=== PATIENT | male | born 1945 | race Caucasian/White ===

== ENCOUNTER → 2016-08-09 | Outpatient (REF) | payer MEDICARE, OTHER ==
[~2016-08-09] MED LIST: /HCTZ25TA PO; ALPR0.5T3 PO; ALPR2TAB3 PO; ASPI1TAB PO; ASPI81TA90 PO; BACT800T5 PO; DOCU10ELUD PO; FLOM5CAP PO; HYDR25TAB PO; LEVO500I7 PO; METO50TA2 PO; METO50TA4 PO; MULT1TAB10 PO; MULTCAP11 PO; PERC5TAB PO; PERCOCET PO; SIMV40TA2 PO; SIMVPOW2 OR; VIAG100T PO; VITA100037 PO; VITA100066 PO; flomax PO; metoprolol OR; vitamin D OR
[2016-08-09 17:42] LABS: ALBUMIN 3.8 GM/DL (3.2-5.2); CALCIUM LEVEL 9.4 MG/DL (8.8-10.2); CREATININE FOR GFR 1.48 MG/DL (0.70-1.30); GLOMERULAR FILTRATION RATE 49.9 (>42); POTASSIUM SERUM 4.4 MEQ/L (3.5-5.1)
[2016-08-09 18:20] LABS: INR 1.05
[2016-08-09 18:30] LABS: MEAN CORPUSCULAR HEMOGLOBIN 33.8 pg (27.0-33.0); MEAN CORPUSCULAR HGB CONC 33.7 g/dl (32.0-36.5); MEAN CORPUSCULAR VOLUME 100.4 fl (80.0-96.0); WHITE BLOOD COUNT 8.6 K/mm3 (4.0-10.0)
[2016-08-09 19:09] LABS: BASOPHILS 2 % (0-4); EOSINOPHILS 1 % (0-5)
== END ==
LOC: M SFHCLERA 10:22
PROVIDERS: ATTEND Family Medicine
DX: Z01.818 Encounter for other preprocedural examination (principal); N32.89 Other specified disorders of bladder; I10 Essential (primary) hypertension; I25.10 Atherosclerotic heart disease of native coronary artery without angina pectoris; F17.200 Nicotine dependence, unspecified, uncomplicated
CPT/HCPCS: 80069; 83036; 85007; 85027; 85610; 93005; G0463

== ENCOUNTER → 2016-08-12 | Outpatient (CLI) | payer MEDICARE, OTHER ==
--- NOTE | 2016-08-12 13:18 | REP ---
CHEST X-RAY: FOUR VIEWS PRESENTED. History: Personal history of bladder cancer. Comparison study: April 17, 2015. Findings: The lungs are somewhat hyperinflated but free of infiltrate. Pleural angles are sharp. Interstitial markings are slightly prominent in the bases. There are old healed rib fractures on the left anteriorly. No pulmonary mass lesion is seen. No hilar or mediastinal adenopathy is observed. Heart size is normal. Nipple silhouettes project at the bases. Impression: No active disease. Hyperinflation and bibasilar interstitial prominence consistent with COPD. Signed by Valerio Jeronimo MD 08/12/2016 03:59 P
== END ==
LOC: M LRY 10:15
PROVIDERS: ATTEND Urology
DX: Z85.51 Personal history of malignant neoplasm of bladder (principal); R91.8 Other nonspecific abnormal finding of lung field; Z79.899 Other long term (current) drug therapy

== ENCOUNTER → 2016-08-12 | Outpatient (REF) | payer MEDICARE, OTHER | LOC: M LABSMT 10:30 | PROVIDERS: ATTEND Urology | DX: Z85.51 Personal history of malignant neoplasm of bladder (principal) ==

== ENCOUNTER → 2016-08-14 | Day surgery (SDC) | payer MEDICARE, OTHER ==
[~2016-08-14] VITALS: Ht 182.9 cm; Wt 77.6 kg
[~2016-08-14] MED LIST changes: +LIDOCAINE 2% INJ 100 MG/5 ML SDV (FOR ANES.) As Ordered ONE; +LR 1,000 ML IV SCH; +METOCLOPRAMIDE INJ 10MG/2ML VIAL (J2765) As Ordered ONE; +METOCLOPRAMIDE INJ 10MG/2ML VIAL (J2765) IV PRN; +METOPROLOL 5 MG/5 ML VIAL As Ordered ONE; +MIDAZOLAM INJ 2 MG/2 ML VIAL (J2250) As Ordered ONE; +ONDANSETRON 4MG/2ML VIAL (J2405) As Ordered ONE; +ONDANSETRON 4MG/2ML VIAL (J2405) IV PRN; +PERCOCET 5MG/325MG TAB PO PRN; +PROPOFOL 200 MG/20 ML VIAL As Ordered ONE; +ROCURONIUM BROMIDE 50 MG/5 ML VIAL As Ordered ONE; +dexameTHASONE 4 MG/ML 1ML VIAL (J1100) As Ordered ONE; +fentaNYL 100 MCG/2 ML INJECTION (J3010) IV PRN; +fentaNYL 250 MCG/5 ML INJECTION (J3010) As Ordered ONE
[2016-08-14 19:00] VITALS: BP 183/97
--- NOTE | 2016-08-15 07:37 | RO ---
DATE OF PROCEDURE: 08/14/2016 PREOPERATIVE DIAGNOSIS: Bladder tumor. POSTOPERATIVE DIAGNOSIS: Bladder tumor. SURGERY PERFORMED: Cystoscopy, plus transurethral resection of bladder tumor (TURBT), plus exam under anesthesia. SURGEON: Dr. True España CUSTOMER MARKETING MANAGER: None. ANESTHESIA: General. COMPLICATIONS: None. ESTIMATED BLOOD LOSS: N/A. FINDINGS: Bladder tumor with calcification about 2 cm and periurethral right sided bladder tumor about 1 cm. HISTORY OF PRESENT ILLNESS: This is a 71-year-old male patient that has a history of bladder cancer and also prostate cancer. He had a robotic assisted radical prostatectomy in the past. He is being followed because of a superficial bladder cancer. The patient has a recurrence with a bladder tumor calcified in the right lateral wall and also periureteral right sided papillary tumor about 1 cm in diameter in the periureteral orifice. For this reason, he has consented for cystoscopy plus TURBT plus exam under anesthesia. PROCEDURE DESCRIPTION: In a patient under general anesthesia in supine modified low lithotomy position after prepping and draping the area of concern, which included the entire genitalia and abdomen, we introduced a cystoscope under video endoscopic guidance with a 30 degrees lens. The fossa navicularis, penile urethra, bulbar urethra, membranous urethra, and bladder neck were totally normal. The bladder had calcification and a bladder tumor on the right lateral wall about 2 cm in diameter. It had a right ureteral orifice which was open due to history of prior resection in that area. There was a periureteral tumor about 1 cm in diameter around the periureteral orifice. The left ureteral orifice was seen for clear urine. There were no other tumors and no stones, no foreign objects. There was a diverticulum on the right side of the bladder. We then proceeded to exchange the cystoscope for a resectoscope and with bipolar dissection and normal saline we resected the bladder tumor with calcification and sent it for permanent pathology analysis. Then, we resected the periureteral orifice urothelium and sent it for permanent pathology analysis as bladder tumor. We then fulgurated the base of the resections and placed a Butcher catheter 20 Iranian 3-way. We plugged the third way and placed the Butcher to gravity. PLAN: The patient will go home with the Butcher catheter to gravity. He will have Bactrim Double Strength one tablet by mouth twice a day, Percocet one tablet by mouth every 6 hours as needed for pain. Followup in two days for a voiding trial. There were no complications during surgery.
== END | disposition home or self-care (01) ==
LOC: M SDC 11:46
PROVIDERS: ATTEND Urology
DX: C67.2 Malignant neoplasm of lateral wall of bladder (principal); C67.5 Malignant neoplasm of bladder neck; I10 Essential (primary) hypertension; E78.00 Pure hypercholesterolemia, unspecified; I73.9 Peripheral vascular disease, unspecified; F41.9 Anxiety disorder, unspecified; N52.9 Male erectile dysfunction, unspecified; E55.9 Vitamin D deficiency, unspecified; F43.10 Post-traumatic stress disorder, unspecified; Z92.21 Personal history of antineoplastic chemotherapy; Z92.3 Personal history of irradiation; F17.210 Nicotine dependence, cigarettes, uncomplicated; Z79.899 Other long term (current) drug therapy; Z79.82 Long term (current) use of aspirin; Z88.5 Allergy status to narcotic agent; Z85.46 Personal history of malignant neoplasm of prostate; Z85.51 Personal history of malignant neoplasm of bladder
CPT/HCPCS: 36415; 52235; 86850; 86900; 86901; 88305; J0690; J1100; J2250; J2405; J2765; J3010

== ENCOUNTER → 2016-08-27 | Outpatient (REF) | payer MEDICARE, OTHER ==
[~2016-08-27] MED LIST changes: -LIDOCAINE 2% INJ 100 MG/5 ML SDV (FOR ANES.) As Ordered ONE; -LR 1,000 ML IV SCH; -METOCLOPRAMIDE INJ 10MG/2ML VIAL (J2765) As Ordered ONE; -METOCLOPRAMIDE INJ 10MG/2ML VIAL (J2765) IV PRN; -METOPROLOL 5 MG/5 ML VIAL As Ordered ONE; -MIDAZOLAM INJ 2 MG/2 ML VIAL (J2250) As Ordered ONE; -ONDANSETRON 4MG/2ML VIAL (J2405) As Ordered ONE; -ONDANSETRON 4MG/2ML VIAL (J2405) IV PRN; -PERCOCET 5MG/325MG TAB PO PRN; -PROPOFOL 200 MG/20 ML VIAL As Ordered ONE; -ROCURONIUM BROMIDE 50 MG/5 ML VIAL As Ordered ONE; -dexameTHASONE 4 MG/ML 1ML VIAL (J1100) As Ordered ONE; -fentaNYL 100 MCG/2 ML INJECTION (J3010) IV PRN; -fentaNYL 250 MCG/5 ML INJECTION (J3010) As Ordered ONE
== END ==
LOC: M LABSMT 09:55
PROVIDERS: ATTEND Nurse Practitioner Women's Health
DX: C67.9 Malignant neoplasm of bladder, unspecified (principal); N39.0 Urinary tract infection, site not specified

== ENCOUNTER → 2016-09-10 | Outpatient (REF) | payer MEDICARE, OTHER | LOC: M SMT 13:18 | PROVIDERS: ATTEND Nurse Practitioner Women's Health | DX: N39.0 Urinary tract infection, site not specified (principal) ==

== ENCOUNTER → 2016-09-27 | Outpatient (CLI) | payer MEDICARE, OTHER ==
[2016-09-27 13:59] LABS: MEAN CORPUSCULAR HEMOGLOBIN 33.1 pg (27.0-33.0); MEAN CORPUSCULAR HGB CONC 33.4 g/dl (32.0-36.5); MEAN CORPUSCULAR VOLUME 99.1 fl (80.0-96.0); RED CELL DISTRIBUTION WIDTH 12.8 % (11.5-14.5); WHITE BLOOD COUNT 7.6 K/mm3 (4.0-10.0)
[2016-09-27 14:24] LABS: CALCIUM LEVEL 8.9 MG/DL (8.8-10.2); CREATININE FOR GFR 1.49 MG/DL (0.70-1.30); GLOMERULAR FILTRATION RATE 49.5 (>42); POTASSIUM SERUM 4.3 MEQ/L (3.5-5.1)
== END ==
LOC: M SMT 10:46
PROVIDERS: ATTEND Urology
DX: C67.9 Malignant neoplasm of bladder, unspecified (principal); Z79.899 Other long term (current) drug therapy
CPT/HCPCS: 36415; 80048; 81001; 85027; 87086; G0463

== ENCOUNTER → 2016-10-25 | Outpatient (REF) | payer MEDICARE, OTHER ==
[2016-10-25 11:35] LABS: MEAN CORPUSCULAR HEMOGLOBIN 32.7 pg (27.0-33.0); MEAN CORPUSCULAR HGB CONC 32.9 g/dl (32.0-36.5); MEAN CORPUSCULAR VOLUME 99.6 fl (80.0-96.0); RED CELL DISTRIBUTION WIDTH 13.2 % (11.5-14.5); WHITE BLOOD COUNT 10.8 K/mm3 (4.0-10.0)
[2016-10-25 12:04] LABS: ALBUMIN 3.6 GM/DL (3.2-5.2); ALBUMIN/GLOBULIN RATIO 1.09 (1.00-1.93); BILIRUBIN,TOTAL 0.3 MG/DL (0.2-1.0); CREATININE FOR GFR 1.58 MG/DL (0.70-1.30); GLOMERULAR FILTRATION RATE 46.3 (>42); POTASSIUM SERUM 4.6 MEQ/L (3.5-5.1); TOTAL PROTEIN 6.9 GM/DL (6.4-8.2)
== END ==
LOC: M SFHCLERA 09:36
PROVIDERS: ATTEND Physician Assistant
DX: R07.9 Chest pain, unspecified (principal); E78.2 Mixed hyperlipidemia; J44.9 Chronic obstructive pulmonary disease, unspecified; Z79.899 Other long term (current) drug therapy

== ENCOUNTER → 2017-02-17 | Outpatient (REF) | payer MEDICARE, OTHER ==
[~2017-02-17] MED LIST changes: +ADV250INH INH; +HYDR25TA6 PO; +INCR1INH INH; +METO1TAB7 PO; -METO50TA2 PO; +METO50TA7 PO; +NICO21DI5 TD; +PREV10CA PO; +PROAAER10 INH
== END ==
LOC: M SMT 17:40
PROVIDERS: ATTEND Urology
DX: Z85.51 Personal history of malignant neoplasm of bladder (principal)

== ENCOUNTER → 2017-02-26 | Outpatient (CLI) | payer MEDICARE, OTHER ==
[2017-02-26 13:20] LABS: MEAN CORPUSCULAR HEMOGLOBIN 34.1 pg (27.0-33.0); MEAN CORPUSCULAR VOLUME 100.3 fl (80.0-96.0); RED CELL DISTRIBUTION WIDTH 14.1 % (11.5-14.5); WHITE BLOOD COUNT 6.7 K/mm3 (4.0-10.0)
[2017-02-26 13:27] LABS: ALBUMIN 3.6 GM/DL (3.2-5.2); ALBUMIN/GLOBULIN RATIO 1.09 (1.00-1.93); ALKALINE PHOSPHATASE 72 U/L (45-117); ALT/SGPT 17 U/L (12-78); ANION GAP 5 MEQ/L (8-16); AST/SGOT 11 U/L (15-37); BILIRUBIN,TOTAL 0.4 MG/DL (0.2-1.0); BLOOD UREA NITROGEN 12 MG/DL (7-18); CARBON DIOXIDE LEVEL 29 MEQ/L (21-32); CHLORIDE LEVEL 109 MEQ/L (98-107); CREATININE FOR GFR 1.68 MG/DL (0.70-1.30); GLOMERULAR FILTRATION RATE 43.1 (>42); GLUCOSE, FASTING 111 MG/DL (83-110); SODIUM LEVEL 143 MEQ/L (136-145); TOTAL PROTEIN 6.9 GM/DL (6.4-8.2)
== END ==
LOC: M SMT 07:50
PROVIDERS: ATTEND Urology
DX: Z85.51 Personal history of malignant neoplasm of bladder (principal); C61 Malignant neoplasm of prostate

== ENCOUNTER → 2017-03-06 | Outpatient (CLI) | payer MEDICARE, OTHER ==
[2017-03-06 18:06] LABS: CALCIUM LEVEL 9.1 MG/DL (8.8-10.2); CREATININE FOR GFR 1.93 MG/DL (0.70-1.30); GLOMERULAR FILTRATION RATE 36.7 (>42); POTASSIUM SERUM 3.9 MEQ/L (3.5-5.1)
[2017-03-06 18:51] LABS: MEAN CORPUSCULAR HEMOGLOBIN 34.3 pg (27.0-33.0); MEAN CORPUSCULAR HGB CONC 34.1 g/dl (32.0-36.5); MEAN CORPUSCULAR VOLUME 100.6 fl (80.0-96.0); RED CELL DISTRIBUTION WIDTH 13.6 % (11.5-14.5); WHITE BLOOD COUNT 6.8 K/mm3 (4.0-10.0)
== END ==
LOC: M SMT 14:37
PROVIDERS: ATTEND Urology
DX: C67.9 Malignant neoplasm of bladder, unspecified (principal); R50.9 Fever, unspecified; R09.3 Abnormal sputum

== ENCOUNTER 2017-04-18 07:49 | Outpatient (CLI) | payer MEDICARE, OTHER ==
[~2017-04-18] VITALS: Ht 182.9 cm; Wt 70.8 kg
[2017-04-18] MEDS ORDERED: NS 1,000 ML IV ONE (08:15)
[2017-04-18] MEDS ORDERED: fentaNYL 100 MCG/2 ML INJECTION (J3010) As Ordered ONE (08:55)
[2017-04-18] MEDS ORDERED: LIDOCAINE 2% INJ 100 MG/5 ML SDV (FOR ANES.) As Ordered ONE (09:02)
[2017-04-18] MEDS ORDERED: PROPOFOL 200 MG/20 ML VIAL As Ordered ONE ×2 (09:02→09:12)
--- NOTE | 2017-04-18 09:47 | ROOR ---
Patient Name: Reece Yarbrough Procedure Date: 04/18/2017 8:51 AM Date of : 1945 Age: 71 Room: [facility] Gender: Male Note Status: Finalized Procedure: Upper GI endoscopy Indications: Weight loss Providers: Mele Mccloud MD Referring MD: TRENTON Colon Requesting Provider: Medicines: Monitored Anesthesia Care Complications: No immediate complications. Procedure: Pre-Anesthesia Assessment: - Prior to the procedure, a History and Physical was performed, and patient medications and allergies were reviewed. The patient is competent. The risks and benefits of the procedure and the sedation options and risks were discussed with the patient. All questions were answered and informed consent was obtained. Patient identification and proposed procedure were verified by the physician, the nurse and the arranging funeral director in the procedure room. Mental Status Examination: alert and oriented. Airway Examination: normal oropharyngeal airway and neck mobility. Respiratory Examination: clear to auscultation. CV Examination: normal. Prophylactic Antibiotics: The patient does not require prophylactic antibiotics. Prior Anticoagulants: The patient has taken no previous anticoagulant or antiplatelet agents. ASA Grade Assessment: III - A patient with severe systemic disease. After reviewing the risks and benefits, the patient was deemed in satisfactory condition to undergo the procedure. The anesthesia plan was to use monitored anesthesia care (MAC). Immediately prior to administration of medications, the patient was re-assessed for adequacy to receive sedatives. The heart rate, respiratory rate, oxygen saturations, blood pressure, adequacy of pulmonary ventilation, and response to care were monitored throughout the procedure. The physical status of the patient was re-assessed after the procedure. The Endoscope was introduced through the mouth, and advanced to the second part of duodenum. The upper GI endoscopy was accomplished without difficulty. The patient tolerated the procedure well. Findings: The examined esophagus was normal. One non-bleeding cratered gastric ulcer with a clean ulcer base (Jeffrey Class III) was found in the gastric antrum. The lesion was 15 mm in largest dimension. Biopsies were taken with a cold forceps for histology. Verification of patient identification for the specimen was done by the physician and nurse using the patient's name, date and medical record number. Estimated blood loss was minimal. Diffuse granular mucosa was found in the entire examined stomach. Two biopsies were obtained with cold forceps for histology in the gastric antrum, as well as two biopsies in the gastric body and two biopsies in the gastric fundus. No gross lesions were noted in the duodenal bulb and in the second portion of the duodenum. Impression: - Normal esophagus. - Non-bleeding gastric ulcer with a clean ulcer base (Jeffrey Class III). Biopsied. - Granular gastric mucosa. - No gross lesions in the duodenal bulb and in the second portion of the duodenum. - Biopsies performed in the gastric antrum, in the gastric body and in the gastric fundus. Recommendation: - Patient has a contact number available for emergencies. The signs and symptoms of potential delayed complications were discussed with the patient. Return to normal activities tomorrow. Written discharge instructions were provided to the patient. - Resume previous diet. - Continue present medications. - Use a proton pump inhibitor PO daily for 8 weeks. - Await pathology results. - Repeat upper endoscopy in 3 months to check healing. - Return to GI office as previously scheduled. - Return to primary care physician. Mele Mccloud MD Mele Mccloud MD 04/18/2017 9:47:07 AM This report has been signed electronically. Number of Addenda: 0 Note Initiated On: 04/18/2017 8:51 AM Estimated Blood Loss: Estimated blood loss was minimal.
[2017-04-18 09:57] VITALS: BP 113/73
--- NOTE | 2017-04-18 10:22 | ROOR ---
Patient Name: Reece Yarbrough Procedure Date: 04/18/2017 8:53 AM Date of : 1945 Age: 71 Room: [facility] Gender: Male Note Status: Finalized Procedure: Colonoscopy Indications: High risk colon cancer surveillance: Personal history of colonic polyps Providers: Mele Mccloud MD Referring MD: TRENTON Colon Requesting Provider: Medicines: Monitored Anesthesia Care Complications: No immediate complications. Procedure: Pre-Anesthesia Assessment: - Prior to the procedure, a History and Physical was performed, and patient medications and allergies were reviewed. The patient is competent. The risks and benefits of the procedure and the sedation options and risks were discussed with the patient. All questions were answered and informed consent was obtained. Patient identification and proposed procedure were verified by the physician, the nurse and the commercial instructor supervisor in the procedure room. Mental Status Examination: alert and oriented. Airway Examination: normal oropharyngeal airway and neck mobility. Respiratory Examination: clear to auscultation. CV Examination: normal. Prophylactic Antibiotics: The patient does not require prophylactic antibiotics. Prior Anticoagulants: The patient has taken no previous anticoagulant or antiplatelet agents. ASA Grade Assessment: III - A patient with severe systemic disease. After reviewing the risks and benefits, the patient was deemed in satisfactory condition to undergo the procedure. The anesthesia plan was to use monitored anesthesia care (MAC). Immediately prior to administration of medications, the patient was re-assessed for adequacy to receive sedatives. The heart rate, respiratory rate, oxygen saturations, blood pressure, adequacy of pulmonary ventilation, and response to care were monitored throughout the procedure. The physical status of the patient was re-assessed after the procedure. The Colonoscope was introduced through the anus and advanced to the terminal ileum, with identification of the appendiceal orifice and IC valve. The colonoscopy was performed without difficulty. The patient tolerated the procedure well. The quality of the bowel preparation was good. The terminal ileum, ileocecal valve, appendiceal orifice, and rectum were photographed. Scope insertion time was 3 minutes. Scope withdrawal time was 11 minutes. The total duration of the procedure was 16 minutes. Findings: The perianal and digital rectal examinations were normal. The terminal ileum appeared normal. Three sessile polyps were found in the ascending colon. The polyps were 3 to 4 mm in size. These polyps were removed with a cold biopsy forceps. Resection and retrieval were complete. Verification of patient identification for the specimen was done by the physician and nurse using the patient's name, date and medical record number. Estimated blood loss was minimal. Two sessile polyps were found in the transverse colon. The polyps were 10 to 12 mm in size. These polyps were removed with a cold snare. Resection and retrieval were complete. To close a defect after polypectomy, two hemostatic clips were successfully placed. There was no bleeding at the end of the procedure. Multiple small and large-mouthed diverticula were found in the sigmoid colon. There was no evidence of diverticular bleeding. Non-bleeding external and internal hemorrhoids were found during retroflexion. The hemorrhoids were medium-sized. Impression: - The examined portion of the ileum was normal. - Three 3 to 4 mm polyps in the ascending colon, removed with a cold biopsy forceps. Resected and retrieved. - Two 10 to 12 mm polyps in the transverse colon, removed with a cold snare. Resected and retrieved. Clips were placed. - Moderate diverticulosis in the sigmoid colon. There was no evidence of diverticular bleeding. - Non-bleeding external and internal hemorrhoids. Recommendation: - Patient has a contact number available for emergencies. The signs and symptoms of potential delayed complications were discussed with the patient. Return to normal activities tomorrow. Written discharge instructions were provided to the patient. - High fiber diet. - Continue present medications. - Await pathology results. - Repeat colonoscopy in 3 - 5 years for surveillance based on pathology results. - Return to GI clinic as previously scheduled on 05/02/2017 at 10:00 AM. - Return to primary care physician. Mele Mccloud MD Mele Mccloud MD 04/18/2017 10:22:16 AM This report has been signed electronically. Number of Addenda: 0 Note Initiated On: 04/18/2017 8:53 AM Estimated Blood Loss: Estimated blood loss was minimal.
== END 2017-04-18 10:07 | disposition home or self-care (01) ==
LOC: M OPP 07:49
PROVIDERS: ATTEND Internal Medicine Gastroenterology
DX: Z12.11 Encounter for screening for malignant neoplasm of colon (principal); Z86.010 Personal history of colon polyps; D12.2 Benign neoplasm of ascending colon; D12.3 Benign neoplasm of transverse colon; K57.30 Diverticulosis of large intestine without perforation or abscess without bleeding; K64.8 Other hemorrhoids; K64.4 Residual hemorrhoidal skin tags; R63.4 Abnormal weight loss; K25.9 Gastric ulcer, unspecified as acute or chronic, without hemorrhage or perforation; K31.89 Other diseases of stomach and duodenum; I10 Essential (primary) hypertension; E78.5 Hyperlipidemia, unspecified; I73.9 Peripheral vascular disease, unspecified; I71.4 Abdominal aortic aneurysm, without rupture; Z85.51 Personal history of malignant neoplasm of bladder; Z85.46 Personal history of malignant neoplasm of prostate; F43.10 Post-traumatic stress disorder, unspecified; R06.02 Shortness of breath; Z92.21 Personal history of antineoplastic chemotherapy; N40.1 Benign prostatic hyperplasia with lower urinary tract symptoms; J44.9 Chronic obstructive pulmonary disease, unspecified; F17.210 Nicotine dependence, cigarettes, uncomplicated; D64.9 Anemia, unspecified; Z88.8 Allergy status to other drugs, medicaments and biological substances; Z79.82 Long term (current) use of aspirin; Z79.899 Other long term (current) drug therapy
CPT/HCPCS: 43239; 45380; 45385; 88305; J3010

== ENCOUNTER → 2017-06-02 | Outpatient (REF) | payer MEDICARE, OTHER | LOC: M SMT 13:12 | PROVIDERS: ATTEND Urology | DX: Z85.51 Personal history of malignant neoplasm of bladder (principal) ==

== ENCOUNTER → 2017-06-19 | Outpatient (CLI) | payer MEDICARE, OTHER ==
[2017-06-19 12:37] LABS: MEAN CORPUSCULAR HEMOGLOBIN 33.3 pg (27.0-33.0); MEAN CORPUSCULAR VOLUME 98.2 fl (80.0-96.0); PLATELET COUNT, AUTOMATED 226 10^3/uL (150-450); RED CELL DISTRIBUTION WIDTH 13.8 % (11.5-14.5); WHITE BLOOD COUNT 6.8 10^3/uL (4.0-10.0)
[2017-06-19 13:18] LABS: ALBUMIN 3.8 GM/DL (3.2-5.2); ALBUMIN/GLOBULIN RATIO 1.15 (1.00-1.93); ALKALINE PHOSPHATASE 65 U/L (45-117); ALT/SGPT 19 U/L (12-78); ANION GAP 7 MEQ/L (8-16); AST/SGOT 11 U/L (7-37); BILIRUBIN,TOTAL 0.5 MG/DL (0.2-1.0); BLOOD UREA NITROGEN 21 MG/DL (7-18); CALCIUM LEVEL 9.2 MG/DL (8.8-10.2); CARBON DIOXIDE LEVEL 28 MEQ/L (21-32); CHLORIDE LEVEL 107 MEQ/L (98-107); CREATININE FOR GFR 1.94 MG/DL (0.70-1.30); GLOMERULAR FILTRATION RATE 36.5 (>42); GLUCOSE, FASTING 134 MG/DL (83-110); POTASSIUM SERUM 4.2 MEQ/L (3.5-5.1); SODIUM LEVEL 142 MEQ/L (136-145); TOTAL PROTEIN 7.1 GM/DL (6.4-8.2)
== END ==
LOC: M SMT 09:26
PROVIDERS: ATTEND Urology
DX: Z85.51 Personal history of malignant neoplasm of bladder (principal); Z79.899 Other long term (current) drug therapy

== ENCOUNTER → 2017-09-01 | Outpatient (REF) | payer MEDICARE, OTHER | LOC: M SMT 17:16 | DX: Z85.51 Personal history of malignant neoplasm of bladder (principal) | CPT/HCPCS: 88108 ==

== ENCOUNTER 2017-09-22 08:16 | Day surgery (SDC) | payer MEDICARE, OTHER ==
[2017-09-22] MEDS: NS 1,000 ML IV ×2 (09:25)
[2017-09-22] MEDS ORDERED: PROPOFOL 500 MG/50 ML VIAL As Ordered ×2 (09:45)
[2017-09-22] MEDS ORDERED: LIDOCAINE 2% INJ 100 MG/5 ML SDV (FOR ANES.) As Ordered ×2 (09:45)
== END 2017-09-22 10:26 | disposition home or self-care (01) ==
LOC: M OPP 08:16
DX: K25.9 Gastric ulcer, unspecified as acute or chronic, without hemorrhage or perforation (principal); K21.0 Gastro-esophageal reflux disease with esophagitis; K29.70 Gastritis, unspecified, without bleeding; I10 Essential (primary) hypertension; E78.5 Hyperlipidemia, unspecified; I73.9 Peripheral vascular disease, unspecified; I71.4 Abdominal aortic aneurysm, without rupture; R12 Heartburn; F43.10 Post-traumatic stress disorder, unspecified; J44.9 Chronic obstructive pulmonary disease, unspecified; Z85.46 Personal history of malignant neoplasm of prostate; Z85.51 Personal history of malignant neoplasm of bladder; Z92.21 Personal history of antineoplastic chemotherapy; F17.210 Nicotine dependence, cigarettes, uncomplicated; Z88.8 Allergy status to other drugs, medicaments and biological substances; Z79.82 Long term (current) use of aspirin; Z79.899 Other long term (current) drug therapy
CPT/HCPCS: 43239

== ENCOUNTER → 2017-10-20 | Outpatient (CLI) | payer MEDICARE, OTHER ==
[2017-10-20 11:52] LABS: ANION GAP 9 MEQ/L (8-16); BLOOD UREA NITROGEN 20 MG/DL (7-18); CALCIUM LEVEL 9.2 MG/DL (8.8-10.2); CARBON DIOXIDE LEVEL 26 MEQ/L (21-32); CHLORIDE LEVEL 106 MEQ/L (98-107); CREATININE FOR GFR 1.86 MG/DL (0.70-1.30); GLOMERULAR FILTRATION RATE 38.2 (>42); GLUCOSE, FASTING 147 MG/DL (70-100); POTASSIUM SERUM 4.4 MEQ/L (3.5-5.1); SODIUM LEVEL 141 MEQ/L (136-145)
== END ==
LOC: M LRY 09:29
DX: N18.9 Chronic kidney disease, unspecified (principal)
CPT/HCPCS: 80048

== ENCOUNTER → 2017-11-24 | Outpatient (CLI) | payer MEDICARE, OTHER ==
[2017-11-24 17:10] LABS: HEMOGLOBIN 15.6 g/dl (13.5-17.5); MEAN CORPUSCULAR HEMOGLOBIN 32.4 pg (27.0-33.0); MEAN CORPUSCULAR HGB CONC 33.9 g/dl (32.0-36.5); MEAN CORPUSCULAR VOLUME 95.6 fl (80.0-96.0); PLATELET COUNT, AUTOMATED 201 10^3/uL (150-450); RED BLOOD COUNT 4.81 10^6/uL (4.30-6.10); RED CELL DISTRIBUTION WIDTH 12.8 % (11.5-14.5)
[2017-11-24 17:29] LABS: ANION GAP 11 MEQ/L (8-16); BLOOD UREA NITROGEN 19 MG/DL (7-18); CARBON DIOXIDE LEVEL 24 MEQ/L (21-32); CHLORIDE LEVEL 106 MEQ/L (98-107); CREATININE FOR GFR 1.89 MG/DL (0.70-1.30); GLOMERULAR FILTRATION RATE 37.5 (>42); GLUCOSE, FASTING 79 MG/DL (70-100); POTASSIUM SERUM 4.2 MEQ/L (3.5-5.1); SODIUM LEVEL 141 MEQ/L (136-145)
== END ==
LOC: M SMT 14:33
DX: Z85.51 Personal history of malignant neoplasm of bladder (principal)
CPT/HCPCS: 80048

== ENCOUNTER → 2017-12-04 | Outpatient (CLI) | payer MEDICARE, OTHER | LOC: M SMT 10:32 | DX: I71.4 Abdominal aortic aneurysm, without rupture (principal); I72.3 Aneurysm of iliac artery; N28.1 Cyst of kidney, acquired | CPT/HCPCS: 76770 ==

== ENCOUNTER → 2018-01-08 | Outpatient (REF) | payer MEDICARE, OTHER ==
[2018-01-08 14:07] LABS: CREATININE,RANDOM URINE 75.2 MG/DL
[2018-01-08 14:07] LABS: TOTAL PROTEIN,RANDOM URINE 33.4 MG/DL (0.0-12.0)
== END ==
LOC: M LAB REF 12:59
DX: N18.3 Chronic kidney disease, stage 3 (moderate) (principal)
CPT/HCPCS: 82570

== ENCOUNTER → 2018-02-23 | Outpatient (REF) | payer MEDICARE, OTHER | LOC: M SMT 17:04 | DX: Z85.51 Personal history of malignant neoplasm of bladder (principal) | CPT/HCPCS: 88108 ==

== ENCOUNTER → 2018-03-17 | Outpatient (CLI) | payer MEDICARE, OTHER ==
[2018-03-17 12:12] LABS: BASO # 0.1 10^3/uL (0.0-0.2); BASO % 0.7 % (0.0-1.0); EOS # 0.4 10^3/uL (0.0-0.50); EOS % 5.4 % (0.0-3.0); HEMATOCRIT 44.5 % (42.0-52.0); HEMOGLOBIN 14.9 g/dl (13.5-17.5); IMMATURE GRANULOCYTE % 0.7 % (0-3.0); LYMPH # 2.1 10^3/uL (1.5-4.5); MEAN CORPUSCULAR HGB CONC 33.5 g/dl (32.0-36.5); MEAN CORPUSCULAR VOLUME 95.5 fl (80.0-96.0); MONO # 0.8 10^3/uL (0.0-0.8); MONO % 11.1 % (0.0-5.0); NEUTROPHILS # 3.8 10^3/uL (1.8-7.7); NEUTROPHILS % 53.1 % (36.0-66.0); PLATELET COUNT, AUTOMATED 215 10^3/uL (150-450); RED BLOOD COUNT 4.66 10^6/uL (4.30-6.10); RED CELL DISTRIBUTION WIDTH 13.3 % (11.5-14.5); WHITE BLOOD COUNT 7.2 10^3/uL (4.0-10.0)
[2018-03-17 12:21] LABS: DRVV SCREEN 35.2 SEC
[2018-03-17 12:37] LABS: ERYTHROCYTE SEDIMENTATION RATE 3 mm/hr (0-20)
[2018-03-17 12:45] LABS: PTT LUPUS TYPE ANTICOAG SCREEN 0.8 (0-1.2)
[2018-03-17 13:00] LABS: ALBUMIN 3.7 GM/DL (3.2-5.2); ALBUMIN/GLOBULIN RATIO 1.03 (1.00-1.93); ALKALINE PHOSPHATASE 57 U/L (45-117); ALT/SGPT 19 U/L (12-78); ANION GAP 6 MEQ/L (8-16); AST/SGOT 11 U/L (7-37); BILIRUBIN,TOTAL 0.4 MG/DL (0.2-1.0); BLOOD UREA NITROGEN 19 MG/DL (7-18); CARBON DIOXIDE LEVEL 26 MEQ/L (21-32); CHLORIDE LEVEL 109 MEQ/L (98-107); GLOMERULAR FILTRATION RATE 42.4 (>42); GLUCOSE, FASTING 84 MG/DL (70-100); POTASSIUM SERUM 4.3 MEQ/L (3.5-5.1); RHEUMATOID FACTOR QUANT < 10.0 IU/ML (<15.0); SODIUM LEVEL 141 MEQ/L (136-145); TOTAL PROTEIN 7.3 GM/DL (6.4-8.2)
[2018-03-17 13:29] LABS: ESTIMATED AVERAGE GLUCOSE 108 MG/DL (60-110); HEMOGLOBIN A1c 5.4 %
[2018-03-17 16:42] LABS: FOLATE 4.4 NG/ML (>5.4); VITAMIN B12 LEVEL 331 PG/ML (247-911)
[2018-03-19 11:47] LABS: ALBUMIN 4.29 GM/DL (3.29-5.55); ALBUMIN % 58.7 % (55.8-66.1); ALPHA-1-GLOBULIN % 4.5 % (2.9-4.9); ALPHA-1-GLOBULINS 0.33 GM/DL (0.17-0.41); ALPHA-2-GLOBULINS 0.79 GM/DL (0.42-0.99); ALPHA-2-GLOBULINS % 10.8 % (7.1-11.8); BETA-1-GLOBULINS 0.42 GM/DL (0.28-0.60); BETA-1-GLOBULINS % 5.7 % (4.7-7.2); BETA-2-GLOBULINS 0.37 GM/DL (0.19-0.55); GAMMA GLOBULIN % 15.3 % (11.1-18.8); GAMMA GLOBULINS 1.12 GM/DL (0.65-1.58)
[2018-03-22 00:06] LABS: ANCA-ATYPICAL <1:20 titer (Neg:<1:20); ANTI DOUBLE STRAND-DNA AB 2 IU/mL (0-9); ANTINUCLEAR ANTIBODIES DIRECT Negative (Negative); CYTOPLASMIC NEUTROP AB ANCA-C <1:20 titer (Neg:<1:20); Lyme Disease IgG/IgM Antibodie <0.91 ISR (0.00-0.90); Lyme Disease IgM Ab Quantitati <0.80 index (0.00-0.79); PERINUCLEAR AB ANCA-P <1:20 titer (Neg:<1:20); SJOGREN'S ANTI SS-A <0.2 AI (0.0-0.9); SJOGREN'S ANTI SS-B <0.2 AI (0.0-0.9); VITAMIN B1 LEVEL WHOLE BLOOD 112.6 nmol/L (66.5-200.0); VITAMIN B6,PYRIDOXAL PHOSPHATE 2.7 ug/L (5.3-46.7); VITAMIN E(ALPHA TOCOPHEROL) 7.7 mg/L (9.0-29.0); VITAMIN E(GAMMA TOCOPHEROL) 0.7 mg/L (0.5-4.9)
== END ==
LOC: M LRY 10:06
DX: G31.84 Mild cognitive impairment of uncertain or unknown etiology (principal); M51.35 Other intervertebral disc degeneration, thoracolumbar region; Z79.01 Long term (current) use of anticoagulants
CPT/HCPCS: 82746

== ENCOUNTER 2018-04-20 15:13 | Inpatient (IN) | payer MEDICARE, OTHER ==
[2018-04-20 15:39] LABS: BASO % 0.3 % (0.0-1.0); EOS % 0.2 % (0.0-3.0); HEMATOCRIT 43.2 % (42.0-52.0); HEMOGLOBIN 15.1 g/dl (13.5-17.5); IMMATURE GRANULOCYTE % 0.4 % (0-3.0); LYMPH % 10.2 % (24.0-44.0); MEAN CORPUSCULAR HEMOGLOBIN 32.7 pg (27.0-33.0); MEAN CORPUSCULAR VOLUME 93.5 fl (80.0-96.0); MONO # 0.6 10^3/uL (0.0-0.8); MONO % 6.2 % (0.0-5.0); NEUTROPHILS # 8.4 10^3/uL (1.8-7.7); NEUTROPHILS % 82.7 % (36.0-66.0); PLATELET COUNT, AUTOMATED 222 10^3/uL (150-450); RED BLOOD COUNT 4.62 10^6/uL (4.30-6.10); RED CELL DISTRIBUTION WIDTH 13.2 % (11.5-14.5); WHITE BLOOD COUNT 10.2 10^3/uL (4.0-10.0)
[2018-04-20 15:45] LABS: BEDSIDE GLUCOSE 100 MG/DL (83-110)
[2018-04-20] MEDS: NS 1,000 ML IV (15:48)
[2018-04-20 15:51] LABS: INR 0.99; PROTHROMBIN TIME 13.2 SECONDS (12.1-14.4)
[2018-04-20] MEDS: ASPIRIN 325 MG TAB PO (16:18)
[2018-04-20 16:19] LABS: ANION GAP 11 MEQ/L (8-16); BLOOD UREA NITROGEN 17 MG/DL (7-18); CALCIUM LEVEL 9.1 MG/DL (8.8-10.2); CARBON DIOXIDE LEVEL 21 MEQ/L (21-32); CHLORIDE LEVEL 111 MEQ/L (98-107); CK-MB VALUE MASS < 1.0 NG/ML (<3.6); CPK CREATINE PHOSPHOKINASE 82 U/L (39-308); CREATININE FOR GFR 1.48 MG/DL (0.70-1.30); GLOMERULAR FILTRATION RATE 49.7 (>42); GLUCOSE, FASTING 103 MG/DL (70-100); MAGNESIUM LEVEL 2.3 MG/DL (1.8-2.4); MB/CK RELATIVE INDEX 1.22 (< OR =4); POTASSIUM SERUM 4.3 MEQ/L (3.5-5.1); SODIUM LEVEL 143 MEQ/L (136-145); TROPONIN I 0.05 NG/ML (< 0.10)
[2018-04-20 19:29] LABS: C REACTIVE PROTEIN QUANTITATIV < 0.30 MG/DL (0.00-0.30); ESTIMATED AVERAGE GLUCOSE 100 MG/DL (60-110); HEMOGLOBIN A1c 5.1 %
[2018-04-20 19:38] LABS: ERYTHROCYTE SEDIMENTATION RATE 4 mm/hr (0-20)
[2018-04-20 20:38] LABS: CPK CREATINE PHOSPHOKINASE 90 U/L (39-308); MB/CK RELATIVE INDEX 2.67 (< OR =4)
[2018-04-20] MEDS ORDERED: PRAVASTATIN 20 MG TAB PO (21:00)
[2018-04-20] MEDS: HEPARIN SOD (PORCINE) 5000 UNITS/ML VIAL SQ (23:07)
[2018-04-20] MEDS: METOPROLOL TART 25 MG TABLET PO (23:09)
[2018-04-20] MEDS: DONEPEZIL 5 MG TAB PO (23:10)
[2018-04-20] MEDS: ATORVASTATIN 20 MG TAB PO (23:12)
[2018-04-21 02:46] LABS: HEMATOCRIT 41.9 % (42.0-52.0); HEMOGLOBIN 14.2 g/dl (13.5-17.5); MEAN CORPUSCULAR HGB CONC 33.9 g/dl (32.0-36.5); MEAN CORPUSCULAR VOLUME 94.4 fl (80.0-96.0); PLATELET COUNT, AUTOMATED 198 10^3/uL (150-450); RED BLOOD COUNT 4.44 10^6/uL (4.30-6.10); RED CELL DISTRIBUTION WIDTH 13.2 % (11.5-14.5)
[2018-04-21 03:55] LABS: ALBUMIN 3.6 GM/DL (3.2-5.2); ALBUMIN/GLOBULIN RATIO 1.24 (1.00-1.93); ALKALINE PHOSPHATASE 60 U/L (45-117); ALT/SGPT 16 U/L (12-78); ANION GAP 10 MEQ/L (8-16); AST/SGOT 12 U/L (7-37); BILIRUBIN,TOTAL 0.5 MG/DL (0.2-1.0); BLOOD UREA NITROGEN 16 MG/DL (7-18); CALCIUM LEVEL 8.6 MG/DL (8.8-10.2); CARBON DIOXIDE LEVEL 20 MEQ/L (21-32); CHLORIDE LEVEL 115 MEQ/L (98-107); CHOLESTEROL LEVEL 115 MG/DL (<200); CHOLESTEROL RISK RATIO 2.674 (<5); CPK CREATINE PHOSPHOKINASE 109 U/L (39-308); CREATININE FOR GFR 1.29 MG/DL (0.70-1.30); GLOMERULAR FILTRATION RATE 58.3 (>42); GLUCOSE, FASTING 84 MG/DL (70-100); HDL CHOLESTEROL 43 MG/DL (>40); LDL CHOLESTEROL 53 MG/DL (<100); MAGNESIUM LEVEL 2.2 MG/DL (1.8-2.4); MB/CK RELATIVE INDEX 2.29 (< OR =4); NON-HDL-C 72 MG/DL; POTASSIUM SERUM 4.2 MEQ/L (3.5-5.1); SODIUM LEVEL 145 MEQ/L (136-145); T UPTAKE 38 % (33-40); THYROXINE (T4) 7.8 UG/DL (4.5-12.0); TOTAL PROTEIN 6.5 GM/DL (6.4-8.2); TRIGLYCERIDES LEVEL 95 MG/DL (<150); TROPONIN I 0.32 NG/ML (< 0.10)
[2018-04-21 08:27] LABS: CPK CREATINE PHOSPHOKINASE 129 U/L (39-308); MB/CK RELATIVE INDEX 1.86 (< OR =4); TROPONIN I 0.32 NG/ML (< 0.10)
[2018-04-21] MEDS: FOLIC ACID 1 MG TAB PO (10:19)
[2018-04-21] MEDS: HEPARIN SOD (PORCINE) 5000 UNITS/ML VIAL SQ ×2 (10:19→21:55)
[2018-04-21] MEDS: THIAMINE 100 MG TAB PO (10:19)
[2018-04-21] MEDS: ASPIRIN 81 MG ENTERIC TAB PO (10:19)
[2018-04-21] MEDS: MULTIVITAMINS/MINERALS THERAP 1 TAB PO (10:19)
[2018-04-21] MEDS: METOPROLOL TART 25 MG TABLET PO ×2 (10:26→21:56)
[2018-04-21 11:37] LABS: DRVV SCREEN 37.3 SEC; PTT LUPUS TYPE ANTICOAG SCREEN 0.9 (0-1.2)
[2018-04-21 15:02] LABS: CPK CREATINE PHOSPHOKINASE 140 U/L (39-308); TROPONIN I 0.23 NG/ML (< 0.10)
[2018-04-21] MEDS ORDERED: PROPOFOL 200 MG/20 ML VIAL As Ordered (17:19)
[2018-04-21] MEDS ORDERED: fentaNYL 100 MCG/2 ML INJECTION (J3010) As Ordered (17:19)
[2018-04-21] MEDS ORDERED: LIDOCAINE 2% INJ 100 MG/5 ML SDV (FOR ANES.) As Ordered (17:19)
[2018-04-21] MEDS ORDERED: MIDAZOLAM INJ 2 MG/2 ML VIAL (J2250) As Ordered (17:20)
[2018-04-21] MEDS: CETACAINE SPRAY 5GM As Ordered (17:47)
[2018-04-21] MEDS: LIDOCAINE VISCOUS 2% SOLN 15ML UDC As Ordered (17:47)
[2018-04-21] MEDS: LR 1,000 ML IV (18:45)
[2018-04-21] MEDS ORDERED: ONDANSETRON 4MG/2ML VIAL (J2405) IV (18:45)
[2018-04-21] MEDS: ATORVASTATIN 20 MG TAB PO (21:55)
[2018-04-21] MEDS: DONEPEZIL 5 MG TAB PO (21:56)
[2018-04-22 05:54] LABS: HEMATOCRIT 41.7 % (42.0-52.0); HEMOGLOBIN 14.1 g/dl (13.5-17.5); MEAN CORPUSCULAR HEMOGLOBIN 32.1 pg (27.0-33.0); MEAN CORPUSCULAR HGB CONC 33.8 g/dl (32.0-36.5); PLATELET COUNT, AUTOMATED 201 10^3/uL (150-450); RED BLOOD COUNT 4.39 10^6/uL (4.30-6.10); RED CELL DISTRIBUTION WIDTH 13.4 % (11.5-14.5)
[2018-04-22 06:18] LABS: ANION GAP 6 MEQ/L (8-16); BLOOD UREA NITROGEN 18 MG/DL (7-18); CALCIUM LEVEL 8.8 MG/DL (8.8-10.2); CARBON DIOXIDE LEVEL 25 MEQ/L (21-32); CHLORIDE LEVEL 113 MEQ/L (98-107); CREATININE FOR GFR 1.52 MG/DL (0.70-1.30); GLOMERULAR FILTRATION RATE 48.2 (>42); GLUCOSE, FASTING 85 MG/DL (70-100); MAGNESIUM LEVEL 2.2 MG/DL (1.8-2.4); POTASSIUM SERUM 4.1 MEQ/L (3.5-5.1); SODIUM LEVEL 144 MEQ/L (136-145)
[2018-04-22] MEDS: FOLIC ACID 1 MG TAB PO (08:43)
[2018-04-22] MEDS: METOPROLOL TART 25 MG TABLET PO ×2 (08:44→20:45)
[2018-04-22] MEDS: THIAMINE 100 MG TAB PO (08:44)
[2018-04-22] MEDS: MULTIVITAMINS/MINERALS THERAP 1 TAB PO (08:44)
[2018-04-22] MEDS: ASPIRIN 81 MG ENTERIC TAB PO (08:44)
[2018-04-22] MEDS: HEPARIN SOD (PORCINE) 5000 UNITS/ML VIAL SQ ×2 (08:45→20:46)
[2018-04-22] MEDS ORDERED: SLF 3 ML SYR IV (12:00)
[2018-04-22] MEDS: SLF 3 ML SYR IV ×2 (14:22→20:46)
[2018-04-22] MEDS: WARFARIN SOD 5 MG TAB PO (16:25)
[2018-04-22] MEDS: ATORVASTATIN 20 MG TAB PO (20:45)
[2018-04-22] MEDS: DONEPEZIL 5 MG TAB PO (20:45)
[2018-04-22] MEDS ORDERED: PILL CRUSHER/CUTTER 1 EACH XX (22:45)
[2018-04-23] MEDS: SLF 3 ML SYR IV ×2 (05:13→14:00)
[2018-04-23 05:52] LABS: HEMATOCRIT 44.3 % (42.0-52.0); HEMOGLOBIN 14.9 g/dl (13.5-17.5); MEAN CORPUSCULAR HEMOGLOBIN 31.6 pg (27.0-33.0); MEAN CORPUSCULAR HGB CONC 33.6 g/dl (32.0-36.5); MEAN CORPUSCULAR VOLUME 94.1 fl (80.0-96.0); PLATELET COUNT, AUTOMATED 210 10^3/uL (150-450); RED BLOOD COUNT 4.71 10^6/uL (4.30-6.10); RED CELL DISTRIBUTION WIDTH 13.3 % (11.5-14.5); WHITE BLOOD COUNT 7.6 10^3/uL (4.0-10.0)
[2018-04-23 06:06] LABS: ANION GAP 8 MEQ/L (8-16); BLOOD UREA NITROGEN 19 MG/DL (7-18); CALCIUM LEVEL 9.2 MG/DL (8.8-10.2); CARBON DIOXIDE LEVEL 22 MEQ/L (21-32); CHLORIDE LEVEL 115 MEQ/L (98-107); CREATININE FOR GFR 1.65 MG/DL (0.70-1.30); GLOMERULAR FILTRATION RATE 43.9 (>42); GLUCOSE, FASTING 95 MG/DL (70-100); MAGNESIUM LEVEL 2.1 MG/DL (1.8-2.4); SODIUM LEVEL 145 MEQ/L (136-145)
[2018-04-23 06:11] LABS: INR 0.96; PROTHROMBIN TIME 12.9 SECONDS (12.1-14.4)
[2018-04-23] MEDS: ASPIRIN 81 MG ENTERIC TAB PO (10:06)
[2018-04-23] MEDS: METOPROLOL TART 25 MG TABLET PO (10:07)
[2018-04-23] MEDS: HEPARIN SOD (PORCINE) 5000 UNITS/ML VIAL SQ (10:08)
[2018-04-23] MEDS: FOLIC ACID 1 MG TAB PO (10:08)
[2018-04-23] MEDS: THIAMINE 100 MG TAB PO (10:09)
[2018-04-23] MEDS: MULTIVITAMINS/MINERALS THERAP 1 TAB PO (10:12)
[2018-04-23] MEDS: ALPRAZolam 0.5 MG TAB PO (12:43)
[2018-04-23] MEDS: VARENICLINE 1 MG TABLET PO (15:06)
[2018-04-27 14:36] LABS: ANCA-ATYPICAL <1:20 titer (Neg:<1:20); ANTI THROMBIN 3 ANTIGEN IMMUNO 95 % (72-124); ANTI THROMBIN 3 FUNCT ACTIVITY 114 % (75-135); ANTINUCLEAR ANTIBODIES DIRECT Negative (Negative); CARDIOLIPIN IGA ANTIBODY <9 APL U/mL (0-11); CARDIOLIPIN IGG ANTIBODY <9 GPL U/mL (0-14); CARDIOLIPIN IGM ANTIBODY <9 MPL U/mL (0-12); CYTOPLASMIC NEUTROP AB ANCA-C <1:20 titer (Neg:<1:20); HOMOCYST(E)INE SERUM 19.3 umol/L (0.0-15.0); PERINUCLEAR AB ANCA-P <1:20 titer (Neg:<1:20); PROTEIN C ANTIGEN 111 % (60-150); PROTEIN S ANTIGEN FREE 72 % (57-157); PROTEIN S ANTIGEN TOTAL 80 % (60-150); SJOGREN'S ANTI SS-A <0.2 AI (0.0-0.9); SJOGREN'S ANTI SS-B <0.2 AI (0.0-0.9)
== END 2018-04-23 15:25 | DRG 65 ==
LOC: M ED 15:13 → M ED INP 17:43 → M PCU 20:36
PROC: B246ZZ4 Ultrasonography of Right and Left Heart, Transesophageal (ICD-10-PCS; principal; 2018-04-21 17:00)
DX: I63.59 Cerebral infarction due to unspecified occlusion or stenosis of other cerebral artery (principal); G81.91 Hemiplegia, unspecified affecting right dominant side; Q21.1 Atrial septal defect; I74.09 Other arterial embolism and thrombosis of abdominal aorta; E78.5 Hyperlipidemia, unspecified; I12.9 Hypertensive chronic kidney disease with stage 1 through stage 4 chronic kidney disease, or unspecified chronic kidney disease; F41.9 Anxiety disorder, unspecified; N52.9 Male erectile dysfunction, unspecified; I71.4 Abdominal aortic aneurysm, without rupture; F03.90 Unspecified dementia, unspecified severity, without behavioral disturbance, psychotic disturbance, mood disturbance, and anxiety; E55.9 Vitamin D deficiency, unspecified; N18.9 Chronic kidney disease, unspecified; I70.0 Atherosclerosis of aorta; M51.36 Other intervertebral disc degeneration, lumbar region; I73.9 Peripheral vascular disease, unspecified; R47.01 Aphasia; Z87.891 Personal history of nicotine dependence; Z85.46 Personal history of malignant neoplasm of prostate; Z85.51 Personal history of malignant neoplasm of bladder; Z79.899 Other long term (current) drug therapy; Z88.8 Allergy status to other drugs, medicaments and biological substances

== ENCOUNTER 2018-04-23 15:30 | Inpatient (IN) | payer MEDICARE, OTHER ==
[2018-04-23] MEDS ORDERED: ALPRAZolam 0.5 MG TAB PO (17:00)
[2018-04-23] MEDS ORDERED: WARFARIN SOD 3 MG TAB PO (17:00)
[2018-04-23] MEDS: WARFARIN SOD 5 MG TAB PO (17:36)
[2018-04-23] MEDS ORDERED: BISACODYL 10 MG SUPP PR (17:45)
[2018-04-23] MEDS: ATORVASTATIN 20 MG TAB PO (20:08)
[2018-04-23] MEDS: DONEPEZIL 5 MG TAB PO (20:09)
[2018-04-23] MEDS: DOCUSATE SODIUM 100 MG CAP PO (20:09)
[2018-04-23] MEDS: SENNA 8.6 MG TAB (SENOKOT) PO (20:09)
[2018-04-23] MEDS ORDERED: VARENICLINE 0.5 MG TABLET PO (21:00)
[2018-04-23] MEDS: ALPRAZolam 0.25 MG TAB PO (21:40)
[2018-04-24 06:47] LABS: INR 0.98; PROTHROMBIN TIME 13.1 SECONDS (12.1-14.4)
[2018-04-24] MEDS: DOCUSATE SODIUM 100 MG CAP PO ×2 (09:32→20:53)
[2018-04-24] MEDS: PANTOPRAZOLE 40MG TAB (PROTONIX) PO (09:32)
[2018-04-24] MEDS: FOLIC ACID 1 MG TAB PO (09:32)
[2018-04-24] MEDS: MULTIVITAMINS/MINERALS THERAP 1 TAB PO (09:32)
[2018-04-24] MEDS: ASPIRIN 81 MG ENTERIC TAB PO (09:33)
[2018-04-24] MEDS: THIAMINE 100 MG TAB PO (09:33)
[2018-04-24] MEDS: ALPRAZolam 0.25 MG TAB PO ×2 (11:11→20:53)
[2018-04-24] MEDS: WARFARIN SOD 5 MG TAB PO (17:41)
[2018-04-24] MEDS: SENNA 8.6 MG TAB (SENOKOT) PO (20:53)
[2018-04-24] MEDS: traZODone 50 MG TAB PO (20:53)
[2018-04-24] MEDS: ATORVASTATIN 20 MG TAB PO (20:53)
[2018-04-24] MEDS: DONEPEZIL 5 MG TAB PO (20:53)
[2018-04-25 05:55] LABS: INR 1.24; PROTHROMBIN TIME 15.8 SECONDS (12.1-14.4)
[2018-04-25] MEDS: THIAMINE 100 MG TAB PO (08:21)
[2018-04-25] MEDS: DOCUSATE SODIUM 100 MG CAP PO ×2 (08:21→20:15)
[2018-04-25] MEDS: ASPIRIN 81 MG ENTERIC TAB PO (08:21)
[2018-04-25] MEDS: MULTIVITAMINS/MINERALS THERAP 1 TAB PO (08:21)
[2018-04-25] MEDS: PANTOPRAZOLE 40MG TAB (PROTONIX) PO (08:21)
[2018-04-25] MEDS: FOLIC ACID 1 MG TAB PO (08:21)
[2018-04-25] MEDS: ALPRAZolam 0.25 MG TAB PO (14:47)
[2018-04-25] MEDS: WARFARIN SOD 5 MG TAB PO (16:07)
[2018-04-25] MEDS: DONEPEZIL 5 MG TAB PO (20:15)
[2018-04-25] MEDS: SENNA 8.6 MG TAB (SENOKOT) PO (20:15)
[2018-04-25] MEDS: traZODone 50 MG TAB PO (20:15)
[2018-04-25] MEDS: ATORVASTATIN 20 MG TAB PO (20:15)
[2018-04-26 07:49] LABS: INR 1.67
[2018-04-26] MEDS: DOCUSATE SODIUM 100 MG CAP PO ×2 (08:20→20:56)
[2018-04-26] MEDS: ASPIRIN 81 MG ENTERIC TAB PO (08:20)
[2018-04-26] MEDS: FOLIC ACID 1 MG TAB PO (08:20)
[2018-04-26] MEDS: THIAMINE 100 MG TAB PO (08:20)
[2018-04-26] MEDS: PANTOPRAZOLE 40MG TAB (PROTONIX) PO (08:20)
[2018-04-26] MEDS: MULTIVITAMINS/MINERALS THERAP 1 TAB PO (08:20)
[2018-04-26] MEDS: ALPRAZolam 0.25 MG TAB PO ×2 (10:39→21:02)
[2018-04-26] MEDS: WARFARIN SOD 5 MG TAB PO (16:47)
[2018-04-26] MEDS: ATORVASTATIN 20 MG TAB PO (20:56)
[2018-04-26] MEDS: DONEPEZIL 5 MG TAB PO (20:56)
[2018-04-26] MEDS: SENNA 8.6 MG TAB (SENOKOT) PO (20:57)
[2018-04-26] MEDS: traZODone 50 MG TAB PO (21:02)
[2018-04-27 07:24] LABS: INR 1.89
[2018-04-27] MEDS: ASPIRIN 81 MG ENTERIC TAB PO (08:55)
[2018-04-27] MEDS: MULTIVITAMINS/MINERALS THERAP 1 TAB PO (08:55)
[2018-04-27] MEDS: THIAMINE 100 MG TAB PO (08:55)
[2018-04-27] MEDS: FOLIC ACID 1 MG TAB PO (08:55)
[2018-04-27] MEDS: PANTOPRAZOLE 40MG TAB (PROTONIX) PO (08:56)
[2018-04-27] MEDS: DOCUSATE SODIUM 100 MG CAP PO ×2 (08:57→20:24)
[2018-04-27] MEDS: ALPRAZolam 0.25 MG TAB PO ×2 (09:09→20:24)
[2018-04-27] MEDS: WARFARIN SOD 5 MG TAB PO (17:53)
[2018-04-27] MEDS: SENNA 8.6 MG TAB (SENOKOT) PO (20:24)
[2018-04-27] MEDS: DONEPEZIL 5 MG TAB PO (20:24)
[2018-04-27] MEDS: traZODone 50 MG TAB PO (20:24)
[2018-04-27] MEDS: ATORVASTATIN 20 MG TAB PO (20:24)
[2018-04-28 07:06] LABS: BASO % 0.6 % (0.0-1.0); EOS # 0.4 10^3/uL (0.0-0.50); EOS % 5.9 % (0.0-3.0); HEMATOCRIT 40.4 % (42.0-52.0); HEMOGLOBIN 13.2 g/dl (13.5-17.5); IMMATURE GRANULOCYTE % 0.6 % (0-3.0); LYMPH # 1.5 10^3/uL (1.5-4.5); LYMPH % 21.2 % (24.0-44.0); MEAN CORPUSCULAR HEMOGLOBIN 32.1 pg (27.0-33.0); MEAN CORPUSCULAR HGB CONC 32.7 g/dl (32.0-36.5); MEAN CORPUSCULAR VOLUME 98.3 fl (80.0-96.0); MONO # 0.8 10^3/uL (0.0-0.8); NEUTROPHILS # 4.2 10^3/uL (1.8-7.7); NEUTROPHILS % 60.7 % (36.0-66.0); PLATELET COUNT, AUTOMATED 184 10^3/uL (150-450); RED BLOOD COUNT 4.11 10^6/uL (4.30-6.10); RED CELL DISTRIBUTION WIDTH 14.1 % (11.5-14.5); WHITE BLOOD COUNT 6.9 10^3/uL (4.0-10.0)
[2018-04-28 07:14] LABS: INR 1.98; PROTHROMBIN TIME 22.9 SECONDS (12.1-14.4)
[2018-04-28 07:26] LABS: ANION GAP 4 MEQ/L (8-16); BLOOD UREA NITROGEN 14 MG/DL (7-18); CALCIUM LEVEL 8.8 MG/DL (8.8-10.2); CARBON DIOXIDE LEVEL 27 MEQ/L (21-32); CHLORIDE LEVEL 112 MEQ/L (98-107); CREATININE FOR GFR 1.67 MG/DL (0.70-1.30); GLOMERULAR FILTRATION RATE 43.3 (>42); GLUCOSE, FASTING 98 MG/DL (70-100); POTASSIUM SERUM 4.3 MEQ/L (3.5-5.1); SODIUM LEVEL 143 MEQ/L (136-145)
[2018-04-28] MEDS: FOLIC ACID 1 MG TAB PO (08:12)
[2018-04-28] MEDS: MULTIVITAMINS/MINERALS THERAP 1 TAB PO (08:12)
[2018-04-28] MEDS: ASPIRIN 81 MG ENTERIC TAB PO (08:12)
[2018-04-28] MEDS: THIAMINE 100 MG TAB PO (08:12)
[2018-04-28] MEDS: PANTOPRAZOLE 40MG TAB (PROTONIX) PO (08:12)
[2018-04-28] MEDS: DOCUSATE SODIUM 100 MG CAP PO ×2 (08:12→20:22)
[2018-04-28] MEDS: WARFARIN SOD 5 MG TAB PO (17:44)
[2018-04-28] MEDS: SENNA 8.6 MG TAB (SENOKOT) PO (20:22)
[2018-04-28] MEDS: DONEPEZIL 5 MG TAB PO (20:22)
[2018-04-28] MEDS: ALPRAZolam 0.25 MG TAB PO (20:22)
[2018-04-28] MEDS: traZODone 50 MG TAB PO (20:22)
[2018-04-28] MEDS: ATORVASTATIN 20 MG TAB PO (20:23)
[2018-04-29 07:10] LABS: INR 2.21
[2018-04-29] MEDS: THIAMINE 100 MG TAB PO (08:22)
[2018-04-29] MEDS: MULTIVITAMINS/MINERALS THERAP 1 TAB PO (08:22)
[2018-04-29] MEDS: PANTOPRAZOLE 40MG TAB (PROTONIX) PO (08:22)
[2018-04-29] MEDS: DOCUSATE SODIUM 100 MG CAP PO ×2 (08:22→22:07)
[2018-04-29] MEDS: FOLIC ACID 1 MG TAB PO (08:22)
[2018-04-29] MEDS: ASPIRIN 81 MG ENTERIC TAB PO (08:22)
[2018-04-29] MEDS: PROPRANOLOL 10 MG TAB PO ×2 (14:30→22:06)
[2018-04-29] MEDS: FLUoxetine 20 MG CAP PO (14:30)
[2018-04-29] MEDS: WARFARIN SOD 5 MG TAB PO (16:22)
[2018-04-29] MEDS: DONEPEZIL 5 MG TAB PO (22:07)
[2018-04-29] MEDS: SENNA 8.6 MG TAB (SENOKOT) PO (22:08)
[2018-04-29] MEDS: ATORVASTATIN 20 MG TAB PO (22:08)
[2018-04-29] MEDS: ALPRAZolam 0.25 MG TAB PO (22:13)
[2018-04-29] MEDS: traZODone 50 MG TAB PO (22:13)
[2018-04-30 07:19] LABS: INR 2.22
[2018-04-30] MEDS: MULTIVITAMINS/MINERALS THERAP 1 TAB PO (08:44)
[2018-04-30] MEDS: ASPIRIN 81 MG ENTERIC TAB PO (08:44)
[2018-04-30] MEDS: FOLIC ACID 1 MG TAB PO (08:44)
[2018-04-30] MEDS: PANTOPRAZOLE 40MG TAB (PROTONIX) PO (08:44)
[2018-04-30] MEDS: FLUoxetine 20 MG CAP PO (08:44)
[2018-04-30] MEDS: THIAMINE 100 MG TAB PO (08:44)
[2018-04-30] MEDS: DOCUSATE SODIUM 100 MG CAP PO ×2 (08:44→20:48)
[2018-04-30] MEDS: PROPRANOLOL 10 MG TAB PO ×3 (08:45→20:46)
[2018-04-30] MEDS: WARFARIN SOD 5 MG TAB PO (17:03)
[2018-04-30] MEDS: ATORVASTATIN 20 MG TAB PO (20:46)
[2018-04-30] MEDS: ALPRAZolam 0.25 MG TAB PO (20:48)
[2018-04-30] MEDS: SENNA 8.6 MG TAB (SENOKOT) PO (20:48)
[2018-04-30] MEDS: DONEPEZIL 5 MG TAB PO (20:48)
[2018-05-01 08:01] LABS: INR 2.28; PROTHROMBIN TIME 25.6 SECONDS (12.1-14.4)
[2018-05-01] MEDS: FLUoxetine 20 MG CAP PO (08:46)
[2018-05-01] MEDS: PANTOPRAZOLE 40MG TAB (PROTONIX) PO (08:46)
[2018-05-01] MEDS: FOLIC ACID 1 MG TAB PO (08:46)
[2018-05-01] MEDS: MULTIVITAMINS/MINERALS THERAP 1 TAB PO (08:46)
[2018-05-01] MEDS: THIAMINE 100 MG TAB PO (08:46)
[2018-05-01] MEDS: DOCUSATE SODIUM 100 MG CAP PO ×2 (08:47→21:53)
[2018-05-01] MEDS: amLODIPine 5 MG TAB PO (08:47)
[2018-05-01] MEDS: PROPRANOLOL 10 MG TAB PO ×3 (08:47→21:53)
[2018-05-01] MEDS: ASPIRIN 81 MG ENTERIC TAB PO (08:48)
[2018-05-01 10:31] LABS: FREE T4 0.97 NG/DL (0.76-1.46)
[2018-05-01 12:14] LABS: APPEARANCE, URINE CLEAR (CLEAR); BACTERIA, URINE AUTO NEGATIVE (NEGATIVE); BILIRUBIN, URINE AUTO NEGATIVE (NEGATIVE); BLOOD, URINE BLOOD NEGATIVE (NEGATIVE); COLOR, URINE STRAW (YELLOW); GLUCOSE, URINE (UA) AUTO NEGATIVE (NEGATIVE); KETONE, URINE AUTO NEGATIVE (NEGATIVE); LEUKOCYTE ESTERASE, URINE AUTO NEGATIVE (NEGATIVE); NITRITE, URINE AUTO NEGATIVE (NEGATIVE); PROTEIN, URINE AUTO NEGATIVE (NEGATIVE); RBC, URINE AUTO 1 /HPF (0-3); SPECIFIC GRAVITY URINE AUTO 1.002 (1.002-1.035); SQUAMOUS EPITHELIAL CELL UR AU 0 /HPF (0-6); UROBILINOGEN, URINE AUTO 0.2 mg/dL (0.0-2.0); WBC, URINE AUTO 0 /HPF (0-3)
[2018-05-01] MEDS: WARFARIN SOD 5 MG TAB PO (16:38)
[2018-05-01] MEDS: SENNA 8.6 MG TAB (SENOKOT) PO (21:00)
[2018-05-01] MEDS: ATORVASTATIN 20 MG TAB PO (21:53)
[2018-05-01] MEDS: DONEPEZIL 5 MG TAB PO (21:54)
[2018-05-01] MEDS: ALPRAZolam 0.25 MG TAB PO (23:21)
[2018-05-02 06:44] LABS: INR 2.37; PROTHROMBIN TIME 26.4 SECONDS (12.1-14.4)
[2018-05-02] MEDS: FLUoxetine 20 MG CAP PO (08:12)
[2018-05-02] MEDS: MULTIVITAMINS/MINERALS THERAP 1 TAB PO (08:12)
[2018-05-02] MEDS: PANTOPRAZOLE 40MG TAB (PROTONIX) PO (08:12)
[2018-05-02] MEDS: THIAMINE 100 MG TAB PO (08:13)
[2018-05-02] MEDS: ASPIRIN 81 MG ENTERIC TAB PO (08:13)
[2018-05-02] MEDS: FOLIC ACID 1 MG TAB PO (08:13)
[2018-05-02] MEDS: PROPRANOLOL 10 MG TAB PO ×3 (08:13→20:14)
[2018-05-02] MEDS: amLODIPine 5 MG TAB PO (08:14)
[2018-05-02] MEDS: DOCUSATE SODIUM 100 MG CAP PO ×3 (08:14→20:12)
[2018-05-02] MEDS: WARFARIN SOD 5 MG TAB PO (17:15)
[2018-05-02] MEDS: ATORVASTATIN 20 MG TAB PO (20:12)
[2018-05-02] MEDS: DONEPEZIL 5 MG TAB PO (20:13)
[2018-05-02] MEDS: ALPRAZolam 0.25 MG TAB PO (20:13)
[2018-05-02] MEDS: SENNA 8.6 MG TAB (SENOKOT) PO (20:14)
[2018-05-03 07:18] LABS: PROTHROMBIN TIME 27.5 SECONDS (12.1-14.4)
[2018-05-03] MEDS: FOLIC ACID 1 MG TAB PO (08:29)
[2018-05-03] MEDS: FLUoxetine 20 MG CAP PO (08:29)
[2018-05-03] MEDS: ASPIRIN 81 MG ENTERIC TAB PO (08:29)
[2018-05-03] MEDS: DOCUSATE SODIUM 100 MG CAP PO ×2 (08:29→20:08)
[2018-05-03] MEDS: MULTIVITAMINS/MINERALS THERAP 1 TAB PO (08:29)
[2018-05-03] MEDS: PANTOPRAZOLE 40MG TAB (PROTONIX) PO (08:29)
[2018-05-03] MEDS: THIAMINE 100 MG TAB PO (08:30)
[2018-05-03] MEDS: PROPRANOLOL 10 MG TAB PO ×3 (08:30→20:09)
[2018-05-03] MEDS: amLODIPine 5 MG TAB PO (08:30)
[2018-05-03] MEDS: WARFARIN SOD 5 MG TAB PO (17:13)
[2018-05-03] MEDS: ATORVASTATIN 20 MG TAB PO (20:08)
[2018-05-03] MEDS: DONEPEZIL 5 MG TAB PO (20:08)
[2018-05-03] MEDS: ALPRAZolam 0.25 MG TAB PO (20:08)
[2018-05-03] MEDS: SENNA 8.6 MG TAB (SENOKOT) PO (21:00)
[2018-05-04] MEDS: MULTIVITAMINS/MINERALS THERAP 1 TAB PO (08:27)
[2018-05-04] MEDS: ASPIRIN 81 MG ENTERIC TAB PO (08:27)
[2018-05-04] MEDS: DOCUSATE SODIUM 100 MG CAP PO ×2 (08:27→21:10)
[2018-05-04] MEDS: PANTOPRAZOLE 40MG TAB (PROTONIX) PO (08:27)
[2018-05-04] MEDS: amLODIPine 5 MG TAB PO (08:27)
[2018-05-04] MEDS: THIAMINE 100 MG TAB PO (08:27)
[2018-05-04] MEDS: FOLIC ACID 1 MG TAB PO (08:27)
[2018-05-04] MEDS: PROPRANOLOL 10 MG TAB PO ×3 (08:27→21:12)
[2018-05-04] MEDS: FLUoxetine 20 MG CAP PO (08:27)
[2018-05-04 08:33] LABS: INR 2.42; PROTHROMBIN TIME 26.8 SECONDS (12.1-14.4)
[2018-05-04] MEDS: WARFARIN SOD 5 MG TAB PO (17:00)
[2018-05-04] MEDS: ALPRAZolam 0.25 MG TAB PO (21:09)
[2018-05-04] MEDS: SENNA 8.6 MG TAB (SENOKOT) PO (21:09)
[2018-05-04] MEDS: DONEPEZIL 5 MG TAB PO (21:09)
[2018-05-04] MEDS: ATORVASTATIN 20 MG TAB PO (21:09)
[2018-05-05 08:01] LABS: INR 2.45; PROTHROMBIN TIME 27.1 SECONDS (12.1-14.4)
[2018-05-05] MEDS: ASPIRIN 81 MG ENTERIC TAB PO (09:03)
[2018-05-05] MEDS: FOLIC ACID 1 MG TAB PO (09:04)
[2018-05-05] MEDS: FLUoxetine 20 MG CAP PO (09:04)
[2018-05-05] MEDS: amLODIPine 5 MG TAB PO (09:04)
[2018-05-05] MEDS: THIAMINE 100 MG TAB PO (09:04)
[2018-05-05] MEDS: PROPRANOLOL 10 MG TAB PO ×3 (09:04→20:39)
[2018-05-05] MEDS: PANTOPRAZOLE 40MG TAB (PROTONIX) PO (09:05)
[2018-05-05] MEDS: DOCUSATE SODIUM 100 MG CAP PO ×2 (09:05→20:39)
[2018-05-05] MEDS: MULTIVITAMINS/MINERALS THERAP 1 TAB PO (09:05)
[2018-05-05] MEDS: WARFARIN SOD 5 MG TAB PO (17:29)
[2018-05-05] MEDS: ATORVASTATIN 20 MG TAB PO (20:39)
[2018-05-05] MEDS: DONEPEZIL 5 MG TAB PO (20:39)
[2018-05-05] MEDS: SENNA 8.6 MG TAB (SENOKOT) PO (20:39)
[2018-05-05] MEDS: ALPRAZolam 0.25 MG TAB PO (20:39)
[2018-05-06 07:13] LABS: INR 2.41; PROTHROMBIN TIME 26.8 SECONDS (12.1-14.4)
[2018-05-06] MEDS: FOLIC ACID 1 MG TAB PO (10:51)
[2018-05-06] MEDS: amLODIPine 5 MG TAB PO (10:51)
[2018-05-06] MEDS: FLUoxetine 20 MG CAP PO (10:51)
[2018-05-06] MEDS: DOCUSATE SODIUM 100 MG CAP PO ×2 (10:51→21:34)
[2018-05-06] MEDS: PROPRANOLOL 10 MG TAB PO ×3 (10:52→21:33)
[2018-05-06] MEDS: ASPIRIN 81 MG ENTERIC TAB PO (10:52)
[2018-05-06] MEDS: THIAMINE 100 MG TAB PO (10:53)
[2018-05-06] MEDS: PANTOPRAZOLE 40MG TAB (PROTONIX) PO (10:53)
[2018-05-06] MEDS: MULTIVITAMINS/MINERALS THERAP 1 TAB PO (10:53)
[2018-05-06 16:26] LABS: BASO # 0.1 10^3/uL (0.0-0.2); BASO % 0.6 % (0.0-1.0); EOS # 0.2 10^3/uL (0.0-0.50); EOS % 2.8 % (0.0-3.0); HEMATOCRIT 42.9 % (42.0-52.0); HEMOGLOBIN 14.4 g/dl (13.5-17.5); IMMATURE GRANULOCYTE % 0.5 % (0-3.0); LYMPH # 1.9 10^3/uL (1.5-4.5); MEAN CORPUSCULAR HGB CONC 33.6 g/dl (32.0-36.5); MEAN CORPUSCULAR VOLUME 95.3 fl (80.0-96.0); MONO % 11.9 % (0.0-5.0); NEUTROPHILS # 5.1 10^3/uL (1.8-7.7); NEUTROPHILS % 61.2 % (36.0-66.0); PLATELET COUNT, AUTOMATED 202 10^3/uL (150-450); RED CELL DISTRIBUTION WIDTH 13.7 % (11.5-14.5); WHITE BLOOD COUNT 8.3 10^3/uL (4.0-10.0)
[2018-05-06 16:58] LABS: ANION GAP 7 MEQ/L (8-16); BLOOD UREA NITROGEN 22 MG/DL (7-18); CALCIUM LEVEL 8.5 MG/DL (8.8-10.2); CARBON DIOXIDE LEVEL 25 MEQ/L (21-32); CHLORIDE LEVEL 110 MEQ/L (98-107); GLOMERULAR FILTRATION RATE 45.5 (>42); GLUCOSE, FASTING 89 MG/DL (70-100); POTASSIUM SERUM 4.1 MEQ/L (3.5-5.1); SODIUM LEVEL 142 MEQ/L (136-145)
[2018-05-06] MEDS: WARFARIN SOD 5 MG TAB PO (17:21)
[2018-05-06] MEDS: METOPROLOL TART 25 MG TABLET PO (17:21)
[2018-05-06] MEDS: DONEPEZIL 5 MG TAB PO (21:33)
[2018-05-06] MEDS: ATORVASTATIN 20 MG TAB PO (21:34)
[2018-05-06] MEDS: SENNA 8.6 MG TAB (SENOKOT) PO (21:34)
[2018-05-07 07:36] LABS: INR 2.62; PROTHROMBIN TIME 28.6 SECONDS (12.1-14.4)
[2018-05-07] MEDS: MULTIVITAMINS/MINERALS THERAP 1 TAB PO (08:57)
[2018-05-07] MEDS: PANTOPRAZOLE 40MG TAB (PROTONIX) PO (08:57)
[2018-05-07] MEDS: DOCUSATE SODIUM 100 MG CAP PO (08:57)
[2018-05-07] MEDS: THIAMINE 100 MG TAB PO (08:57)
[2018-05-07] MEDS: ASPIRIN 81 MG ENTERIC TAB PO (08:57)
[2018-05-07] MEDS: amLODIPine 5 MG TAB PO (08:57)
[2018-05-07] MEDS: FLUoxetine 20 MG CAP PO (08:57)
[2018-05-07] MEDS: FOLIC ACID 1 MG TAB PO (08:57)
[2018-05-07] MEDS: METOPROLOL SUCC *XL* 25MG TAB (TopROL *XL*) PO (08:59)
[2018-05-07] MEDS: PROPRANOLOL 10 MG TAB PO (08:59)
[2018-05-07] MEDS ORDERED: PROPRANOLOL 10 MG TAB PO (10:45)
[2018-05-08 00:08] LABS: Methylmalonic Acid 487 nmol/L (0-378)
[2018-05-08] MEDS ORDERED: METOPROLOL SUCC *XL* 12.5MG PER 1/2 TAB (TopROL *XL*) PO (09:00)
== END 2018-05-07 12:30 | disposition home or self-care (01) | DRG 57 ==
LOC: M PM&R 15:30
DX: I69.351 Hemiplegia and hemiparesis following cerebral infarction affecting right dominant side (principal); I69.320 Aphasia following cerebral infarction; I69.390 Apraxia following cerebral infarction; I71.4 Abdominal aortic aneurysm, without rupture; I12.9 Hypertensive chronic kidney disease with stage 1 through stage 4 chronic kidney disease, or unspecified chronic kidney disease; E78.5 Hyperlipidemia, unspecified; N52.9 Male erectile dysfunction, unspecified; F41.9 Anxiety disorder, unspecified; N18.9 Chronic kidney disease, unspecified; F03.90 Unspecified dementia, unspecified severity, without behavioral disturbance, psychotic disturbance, mood disturbance, and anxiety; Z85.46 Personal history of malignant neoplasm of prostate; Z85.51 Personal history of malignant neoplasm of bladder; Z88.8 Allergy status to other drugs, medicaments and biological substances; Z79.899 Other long term (current) drug therapy; Z87.891 Personal history of nicotine dependence

== ENCOUNTER 2018-05-08 08:38 | Outpatient (RCR) | payer MEDICARE, OTHER | END 2018-06-03 | LOC: M ST 08:38 → M PT 05-14 08:57 → M ST 05-22 08:58 → M PT 05-29 07:48 → M ST 06-02 08:40 → M PT 05-14 08:57 → M ST 05-22 08:58 → M PT 05-29 07:48 → M ST 06-02 08:40 | DX: I69.314 Frontal lobe and executive function deficit following cerebral infarction (principal) | CPT/HCPCS: 97110 ==

== ENCOUNTER → 2018-05-11 | Outpatient (REF) | payer MEDICARE, OTHER ==
[2018-05-11 12:29] LABS: INR 2.66; PROTHROMBIN TIME 28.9 SECONDS (12.1-14.4)
[2018-05-11 12:30] LABS: PARTIAL THROMBOPLASTIN TIME 42.2 SECONDS (25.4-37.6)
[2018-05-11 13:05] LABS: FREE T4 0.99 NG/DL (0.76-1.46)
== END ==
LOC: M SFHCLERA 09:49
DX: E03.9 Hypothyroidism, unspecified (principal); Z51.81 Encounter for therapeutic drug level monitoring; Z23 Encounter for immunization
CPT/HCPCS: 84443

== ENCOUNTER → 2018-05-29 | Outpatient (REF) | payer MEDICARE, OTHER ==
[2018-05-29 14:44] LABS: INR 3.28; PROTHROMBIN TIME 34.1 SECONDS (12.1-14.4)
[2018-05-29 14:45] LABS: PARTIAL THROMBOPLASTIN TIME 45.2 SECONDS (25.4-37.6)
== END ==
LOC: M SFHCLERA 12:31
DX: Z51.81 Encounter for therapeutic drug level monitoring (principal); E03.9 Hypothyroidism, unspecified; Z79.899 Other long term (current) drug therapy
CPT/HCPCS: 85610

== ENCOUNTER 2018-06-05 09:01 | Outpatient (RCR) | payer MEDICARE, OTHER | END 2018-07-03 | LOC: M ST 09:01 → M PT 06-29 14:30 → M ST 07-03 08:48 | DX: I69.314 Frontal lobe and executive function deficit following cerebral infarction (principal) | CPT/HCPCS: 97110 ==

== ENCOUNTER → 2018-06-12 | Outpatient (REF) | payer MEDICARE, OTHER ==
[2018-06-12 17:22] LABS: INR 1.87; PROTHROMBIN TIME 21.8 SECONDS (12.1-14.4)
== END ==
LOC: M SFHCLERA 13:54
DX: Z79.01 Long term (current) use of anticoagulants (principal)
CPT/HCPCS: 85610

== ENCOUNTER → 2018-06-29 | Outpatient (REF) | payer MEDICARE, OTHER ==
[2018-06-29 20:42] LABS: INR 2.12; PROTHROMBIN TIME 24.1 SECONDS (12.1-14.4)
== END ==
LOC: M SFHCLERA 16:43
DX: Z79.01 Long term (current) use of anticoagulants (principal)
CPT/HCPCS: 85610

== ENCOUNTER → 2018-07-07 | Outpatient (REF) | payer MEDICARE, OTHER | LOC: M SFHCLERA 13:41 | DX: I63.40 Cerebral infarction due to embolism of unspecified cerebral artery (principal); C67.9 Malignant neoplasm of bladder, unspecified; Z51.81 Encounter for therapeutic drug level monitoring; Z53.9 Procedure and treatment not carried out, unspecified reason ==

== ENCOUNTER → 2018-07-08 | Outpatient (REF) | payer MEDICARE, OTHER ==
[2018-07-08 19:10] LABS: ALBUMIN 3.4 GM/DL (3.2-5.2); ALBUMIN/GLOBULIN RATIO 1.06 (1.00-1.93); ALKALINE PHOSPHATASE 131 U/L (45-117); ALT/SGPT 33 U/L (12-78); ANION GAP 8 MEQ/L (8-16); AST/SGOT 21 U/L (7-37); BILIRUBIN,TOTAL 0.4 MG/DL (0.2-1.0); BLOOD UREA NITROGEN 25 MG/DL (7-18); CALCIUM LEVEL 8.4 MG/DL (8.8-10.2); CARBON DIOXIDE LEVEL 26 MEQ/L (21-32); CHLORIDE LEVEL 107 MEQ/L (98-107); CHOLESTEROL LEVEL 136 MG/DL (<200); CREATININE FOR GFR 1.84 MG/DL (0.70-1.30); GLOMERULAR FILTRATION RATE 38.7 (>42); GLUCOSE, FASTING 88 MG/DL (70-100); HDL CHOLESTEROL 44 MG/DL (>40); LDL CHOLESTEROL 64 MG/DL (<100); NON-HDL-C 92 MG/DL; POTASSIUM SERUM 4.3 MEQ/L (3.5-5.1); SODIUM LEVEL 141 MEQ/L (136-145); TOTAL PROTEIN 6.6 GM/DL (6.4-8.2); TRIGLYCERIDES LEVEL 141 MG/DL (<150)
[2018-07-08 19:19] LABS: HEMATOCRIT 42.2 % (42.0-52.0); HEMOGLOBIN 13.7 g/dl (13.5-17.5); MEAN CORPUSCULAR HEMOGLOBIN 31.3 pg (27.0-33.0); MEAN CORPUSCULAR HGB CONC 32.5 g/dl (32.0-36.5); MEAN CORPUSCULAR VOLUME 96.3 fl (80.0-96.0); PLATELET COUNT, AUTOMATED 182 10^3/uL (150-450); RED BLOOD COUNT 4.38 10^6/uL (4.30-6.10); RED CELL DISTRIBUTION WIDTH 13.5 % (11.5-14.5); WHITE BLOOD COUNT 9.7 10^3/uL (4.0-10.0)
[2018-07-08 19:32] LABS: INR 2.66; PROTHROMBIN TIME 28.9 SECONDS (12.1-14.4)
== END ==
LOC: M SFHCLERA 10:17
DX: I63.40 Cerebral infarction due to embolism of unspecified cerebral artery (principal); C67.9 Malignant neoplasm of bladder, unspecified; Z51.81 Encounter for therapeutic drug level monitoring
CPT/HCPCS: 80053

== ENCOUNTER → 2018-07-15 | Outpatient (REF) | payer MEDICARE, OTHER ==
[2018-07-15 17:29] LABS: APPEARANCE, URINE CLEAR (CLEAR); BACTERIA, URINE AUTO 1+ (NEGATIVE); BILIRUBIN, URINE AUTO NEGATIVE (NEGATIVE); BLOOD, URINE BLOOD NEGATIVE (NEGATIVE); COLOR, URINE YELLOW (YELLOW); GLUCOSE, URINE (UA) AUTO NEGATIVE (NEGATIVE); KETONE, URINE AUTO NEGATIVE (NEGATIVE); LEUKOCYTE ESTERASE, URINE AUTO NEGATIVE (NEGATIVE); MUCUS, URINE SMALL (NEGATIVE); NITRITE, URINE AUTO NEGATIVE (NEGATIVE); PROTEIN, URINE AUTO 1+ mg/dL (NEGATIVE); RBC, URINE AUTO 4 /HPF (0-3); SQUAMOUS EPITHELIAL CELL UR AU 1 /HPF (0-6); WBC, URINE AUTO 11 /HPF (0-3)
== END ==
LOC: M LABSMT 13:55
DX: Z85.51 Personal history of malignant neoplasm of bladder (principal)
CPT/HCPCS: 81001

== ENCOUNTER → 2018-07-24 | Outpatient (CLI) | payer MEDICARE, OTHER ==
[~2018-07-24] MED LIST changes: +AMLO25TA PO; +AMLO5TAB6 PO; +ARIC1TAB PO; +ASPI81TAEC PO; +ATOR1TAB21 PO; +COUM1TAB17 PO; +DONE5TAB64 PO; +FLOM0.4C39 PO; -FLOM5CAP PO; +FLUO20CA19 PO; +FOLI1TAB11 PO; +HYDR25TAB; +METO1TAB32 PO; -NICO21DI5 TD; +NICO21DI6 TD; +OMEP20CA3; +PANT40TA3 PO; +PROP10TAB PO; +THIA100TA PO; +VARE05TA PO; +VITMTA PO; +XANA0.5T PO
[2018-07-24 20:18] LABS: INR 1.67; PROTHROMBIN TIME 19.9 SECONDS (12.1-14.4)
== END ==
LOC: M LRY 17:20
PROVIDERS: ATTEND Nurse Practitioner Family
DX: C67.9 Malignant neoplasm of bladder, unspecified (principal)

== ENCOUNTER 2018-07-31 09:00 | Outpatient (RCR) | payer MEDICARE, OTHER | END 2018-08-03 | LOC: M ST 09:00 | PROVIDERS: ATTEND Family Medicine | DX: I69.314 Frontal lobe and executive function deficit following cerebral infarction (principal) | CPT/HCPCS: 97110; 97112; G0515; G9168; G9169 ==

== ENCOUNTER → 2018-08-07 | Outpatient (REF) | payer MEDICARE, OTHER ==
[2018-08-07 20:16] LABS: INR 2.78; PROTHROMBIN TIME 29.9 SECONDS (12.1-14.4)
== END ==
LOC: M SFHCLERA 17:39
PROVIDERS: ATTEND Nurse Practitioner Family
DX: I63.40 Cerebral infarction due to embolism of unspecified cerebral artery (principal)

== ENCOUNTER → 2018-08-14 | Outpatient (REF) | payer MEDICARE, OTHER ==
[2018-08-14 18:09] LABS: INR 3.09; PROTHROMBIN TIME 32.6 SECONDS (12.1-14.4)
== END ==
LOC: M SFHCLERA 14:47
PROVIDERS: ATTEND Nurse Practitioner Family
DX: Z51.81 Encounter for therapeutic drug level monitoring (principal); Z79.01 Long term (current) use of anticoagulants

== ENCOUNTER → 2018-08-24 | Outpatient (CLI) | payer MEDICARE, OTHER | LOC: M SMT 14:08 | PROVIDERS: ATTEND Urology | DX: Z85.46 Personal history of malignant neoplasm of prostate (principal) ==

== ENCOUNTER → 2018-08-31 | Outpatient (REF) | payer MEDICARE, OTHER ==
[2018-08-31 20:59] LABS: INR 1.66; PROTHROMBIN TIME 19.9 SECONDS (12.1-14.4)
== END ==
LOC: M SFHCLERA 15:14
PROVIDERS: ATTEND Nurse Practitioner Family
DX: Z79.01 Long term (current) use of anticoagulants (principal)

== ENCOUNTER → 2018-09-18 | Outpatient (REF) | payer MEDICARE, OTHER ==
[2018-09-18 16:43] LABS: INR 1.34; PROTHROMBIN TIME 16.8 SECONDS (12.1-14.4)
== END ==
LOC: M SFHCLERA 13:52
PROVIDERS: ATTEND Nurse Practitioner Family
DX: Z79.01 Long term (current) use of anticoagulants (principal)

== ENCOUNTER → 2018-09-25 | Outpatient (REF) | payer MEDICARE, OTHER ==
[2018-09-25 20:35] LABS: INR 1.79; PROTHROMBIN TIME 21.1 SECONDS (12.1-14.4)
== END ==
LOC: M SFHCLERA 12:07
PROVIDERS: ATTEND Nurse Practitioner Family
DX: Z79.01 Long term (current) use of anticoagulants (principal)

== ENCOUNTER → 2018-10-09 | Outpatient (REF) | payer MEDICARE, OTHER ==
[2018-10-09 17:02] LABS: INR 1.74; PROTHROMBIN TIME 20.6 SECONDS (12.1-14.4)
== END ==
LOC: M SFHCLERA 14:58
PROVIDERS: ATTEND Nurse Practitioner Family
DX: Z79.01 Long term (current) use of anticoagulants (principal)

== ENCOUNTER → 2018-10-27 | Outpatient (REF) | payer MEDICARE, OTHER ==
[2018-10-27 20:49] LABS: INR 1.41; PROTHROMBIN TIME 17.5 SECONDS (12.1-14.4)
== END ==
LOC: M LABSMT 15:41
PROVIDERS: ATTEND Urology
DX: Z79.01 Long term (current) use of anticoagulants (principal)

== ENCOUNTER → 2018-11-23 | Outpatient (REF) | payer MEDICARE, OTHER ==
[~2018-11-23] MED LIST changes: -/HCTZ25TA PO; -ASPI1TAB PO; +ASPI81TA26 PO; -DOCU10ELUD PO; +DOCU5LIQ PO; +HYDR-3644 PO; +KEFL250C11 PO; +MEMA1TAB2 PO; +PROP10TA55 PO; -PROP10TAB PO; +PROP60TA14 PO
== END ==
LOC: M SMT 17:14
PROVIDERS: ATTEND Urology
DX: C67.9 Malignant neoplasm of bladder, unspecified (principal)

== ENCOUNTER → 2018-12-07 | Outpatient (CLI) | payer MEDICARE, OTHER ==
--- NOTE | 2018-12-07 18:00 | REP ---
Chest x-ray: Two views. History: Bladder cancer. Comparison study: August 12, 2016. Findings: The lungs are hyperinflated consistent with COPD and emphysema. Oligemia changes are seen in the upper lobes associated with this. These findings are unchanged. Nipple silhouettes project at the bases. There are old healed rib fractures anteriorly on the left. Pleural angles are sharp. Cardiomediastinal silhouette is unremarkable and unchanged. The aorta is somewhat tortuous. Impression: Evidence of COPD. No acute disease. Electronically Signed by Valerio Jeronimo MD 12/08/2018 10:30 A
[2018-12-07 20:19] LABS: HEMATOCRIT 45.4 % (42.0-52.0); HEMOGLOBIN 14.5 g/dl (13.5-17.5); MEAN CORPUSCULAR HEMOGLOBIN 30.4 pg (27.0-33.0); MEAN CORPUSCULAR HGB CONC 31.9 g/dl (32.0-36.5); MEAN CORPUSCULAR VOLUME 95.2 fl (80.0-96.0); PLATELET COUNT, AUTOMATED 182 10^3/uL (150-450); RED BLOOD COUNT 4.77 10^6/uL (4.30-6.10); WHITE BLOOD COUNT 7.1 10^3/uL (4.0-10.0)
[2018-12-07 20:23] LABS: CALCIUM LEVEL 8.3 MG/DL (8.8-10.2); CREATININE FOR GFR 2.36 MG/DL (0.70-1.30); GLOMERULAR FILTRATION RATE 28.9 (>42); POTASSIUM SERUM 4.1 MEQ/L (3.5-5.1)
[2018-12-07 20:30] LABS: INR 1.89
== END ==
LOC: M LRY 16:23
PROVIDERS: ATTEND Urology
DX: Z01.818 Encounter for other preprocedural examination (principal); Z85.51 Personal history of malignant neoplasm of bladder; N39.0 Urinary tract infection, site not specified; J44.9 Chronic obstructive pulmonary disease, unspecified; Z79.01 Long term (current) use of anticoagulants

== ENCOUNTER → 2018-12-16 | Outpatient (REF) | payer MEDICARE, OTHER ==
[2018-12-16 21:14] LABS: INR 1.05; PROTHROMBIN TIME 13.8 SECONDS (12.1-14.4)
== END ==
LOC: M LABSMT 16:35
PROVIDERS: ATTEND Urology
DX: Z79.01 Long term (current) use of anticoagulants (principal)

== ENCOUNTER 2018-12-18 06:24 | Day surgery (SDC) | payer MEDICARE, OTHER ==
[~2018-12-18] VITALS: Ht 182.9 cm; Wt 74.6 kg
[~2018-12-18 06:24] MED LIST changes: +LIDOCAINE 1% MDV 20ML VIAL SQ PRN
[2018-12-18 06:58] LABS: INR 0.94; PROTHROMBIN TIME 12.7 SECONDS (12.1-14.4)
[2018-12-18] MEDS ORDERED: LR 1,000 ML IV ONE (07:00)
--- NOTE | 2018-12-18 08:39 | RO ---
DATE OF PROCEDURE: 12/18/2018 PREPROCEDURE DIAGNOSIS: Bladder cancer. POSTPROCEDURE DIAGNOSIS: Bladder cancer. PROCEDURE: Cystoscopy, transurethral resection of bladder tumor (less than 2 cm). SURGEON: Matthew Cao MD [employer] FURNACE OPERATOR: None. ANESTHESIA: General. OPERATIVE INDICATIONS: This is a 73-year-old male with a history of bladder cancer. On recent office cystoscopy, he was found to have several small tumors inside a right wall bladder diverticulum. He was brought to the operating room today for the above listed procedure. DESCRIPTION OF PROCEDURE: The patient was brought to the operating room and general anesthesia was induced. Prophylaxis antibiotics were infused. He was then placed in dorsal lithotomy position, prepped and draped in the usual sterile fashion. At this point, a resectoscope was inserted into the urethral meatus using a visual electro winning operator. The bladder was thoroughly examined and the only abnormality seen were several small papillary tumors lining the bladder diverticulum on the right lateral wall. At this point, I utilized a loop to resect the majority of these tumors. They were sent to pathology for analysis. Since we were operating inside the diverticulum, I was not very aggressive and therefore fulgurated the remainder of the tumors along the diverticulum wall. Once satisfied after I either removed or fulgurated all the tumors, hemostasis was obtained using a coagulation current. I observed the bladder several times to make sure that we had adequate hemostasis. Once satisfied, the resectoscope was removed and an #18 Spanish Butcher catheter was inserted into the bladder. The balloon was filled with 10 mL of sterile water and the catheter was connected to gravity drainage. This marked conclusion of the procedure. The patient was then taken out of dorsal lithotomy position, awakened from anesthesia and transported to the recovery room in stable condition. ESTIMATED BLOOD LOSS: 10 mL. COMPLICATIONS: None. SPECIMENS: Bladder tumors. PLAN: The patient will followup in the clinic in approximately one week fro catheter removal and to discuss pathology results. DOMENIC
[2018-12-18] MEDS ORDERED: ACETAMINOPHEN TAB 650MG DOSE (2X325MG) PO PRN (08:45)
[2018-12-18] MEDS ORDERED: ONDANSETRON 4MG/2ML VIAL (J2405) IV PRN (09:15)
[2018-12-18] MEDS ORDERED: PERCOCET 5MG/325MG TAB PO PRN (09:15)
[2018-12-18] MEDS ORDERED: LR 1,000 ML IV SCH (09:15)
[2018-12-18] MEDS ORDERED: fentaNYL 100 MCG/2 ML INJECTION (J3010) IV PRN (09:15)
[2018-12-18 09:50] VITALS: BP 174/88
== END 2018-12-18 10:10 | disposition home or self-care (01) ==
LOC: M SDC 06:24
PROVIDERS: ATTEND Urology
DX: D30.3 Benign neoplasm of bladder (principal); I25.10 Atherosclerotic heart disease of native coronary artery without angina pectoris; I71.4 Abdominal aortic aneurysm, without rupture; E78.49 Other hyperlipidemia; N18.4 Chronic kidney disease, stage 4 (severe); J44.9 Chronic obstructive pulmonary disease, unspecified; Z86.73 Personal history of transient ischemic attack (TIA), and cerebral infarction without residual deficits; Z87.891 Personal history of nicotine dependence; Z85.46 Personal history of malignant neoplasm of prostate; Z85.51 Personal history of malignant neoplasm of bladder; F03.90 Unspecified dementia, unspecified severity, without behavioral disturbance, psychotic disturbance, mood disturbance, and anxiety; Z79.82 Long term (current) use of aspirin; Z79.01 Long term (current) use of anticoagulants; K21.9 Gastro-esophageal reflux disease without esophagitis; E55.9 Vitamin D deficiency, unspecified; Z79.899 Other long term (current) drug therapy
CPT/HCPCS: 36415; 52234; 85610; 88307; J0690

== ENCOUNTER → 2019-03-05 | Outpatient (CLI) | payer MEDICARE, OTHER ==
[~2019-03-05] MED LIST changes: -LIDOCAINE 1% MDV 20ML VIAL SQ PRN; -OMEP20CA3; +OMEP20CA4
--- NOTE | 2019-03-05 08:07 | REP ---
Clinical: Acute renal insufficiency Technique: Real time johnston scale ultrasound examination using curved array transducer. Findings: The kidneys are relatively normal in reniform shape and demonstrate increased parenchymal echogenicity and increased central sinus fat consistent with chronic medical renal disease. Bladder is grossly unremarkable. The right kidney measures 9.0 x 4.3 x 3.9 cm and includes 3.8 x 4.0 x 3.7 cm upper pole simple cyst, 2.0 x 1.5 x 1.3 cm lower pole simple cyst and is without hydronephrosis, nephrolithiasis, or renal mass lesion. The left kidney measures 10.1 x 4.1 x 5.1 cm and is without hydronephrosis, nephrolithiasis, cystic or renal mass lesion. Impression: Chronic medical renal disease. Right renal cyst. No hydronephrosis. Electronically Signed by Ivan Bermudez MD 03/05/2019 07:59 A
== END ==
LOC: M RAD 06:14
PROVIDERS: ATTEND Nurse Practitioner Family
DX: N17.9 Acute kidney failure, unspecified (principal); Z85.51 Personal history of malignant neoplasm of bladder

== ENCOUNTER → 2019-08-23 | Outpatient (REF) | payer MEDICARE, OTHER ==
[~2019-08-23] MED LIST changes: -FLUO20CA19 PO; +FLUO20CA22 PO; +MEMA10TA19 PO; -MEMA1TAB2 PO; +OMEP1CAP73; -OMEP20CA4; +SIMV40TA20 PO
== END ==
LOC: M SMT 17:25
PROVIDERS: ATTEND Urology
DX: Z85.51 Personal history of malignant neoplasm of bladder (principal); N39.0 Urinary tract infection, site not specified

== ENCOUNTER → 2019-08-23 | Outpatient (REF) | payer MEDICARE, OTHER ==
[~2019-08-23] MED LIST changes: +FLUO20CA19 PO; -FLUO20CA22 PO
== END ==
LOC: M SMT 17:14
PROVIDERS: ATTEND Urology
DX: N39.0 Urinary tract infection, site not specified (principal)

== ENCOUNTER → 2019-09-09 | Outpatient (REF) | payer MEDICARE, OTHER ==
[2019-09-09 17:50] LABS: APPEARANCE, URINE CLOUDY (CLEAR); BACTERIA, URINE AUTO 2+ (NEGATIVE); BILIRUBIN, URINE AUTO NEGATIVE (NEGATIVE); BLOOD, URINE BLOOD 1+ (NEGATIVE); COLOR, URINE AMBER (YELLOW); GLUCOSE, URINE (UA) AUTO NEGATIVE (NEGATIVE); KETONE, URINE AUTO NEGATIVE (NEGATIVE); LEUKOCYTE ESTERASE, URINE AUTO 2+ (NEGATIVE); MUCUS, URINE SMALL (NEGATIVE); NITRITE, URINE AUTO NEGATIVE (NEGATIVE); PROTEIN, URINE AUTO 2+ mg/dL (NEGATIVE); RBC, URINE AUTO 4 /HPF (0-3); SPECIFIC GRAVITY URINE AUTO 1.019 (1.002-1.035); SQUAMOUS EPITHELIAL CELL UR AU 1 /HPF (0-6); WBC, URINE AUTO TNTC /HPF (0-3)
== END ==
LOC: M SMT 16:34
PROVIDERS: ATTEND Nurse Practitioner Family
DX: N39.0 Urinary tract infection, site not specified (principal)

== ENCOUNTER → 2020-02-25 | Outpatient (REF) | payer MEDICARE, OTHER ==
[~2020-02-25] MED LIST changes: +AMLO1TAB24 PO; -AMLO5TAB6 PO; +ASPI81CH48 PO; -FLUO20CA19 PO; +FLUO20CA22 PO; +PANT40TA29 PO; -PANT40TA3 PO; +RANI15TA PO; +ROCA0.25 PO
== END ==
LOC: M SMT 07:20
PROVIDERS: ATTEND Urology
DX: C67.9 Malignant neoplasm of bladder, unspecified (principal)

== ENCOUNTER → 2020-03-13 | Outpatient (REF) | payer MEDICARE, OTHER | LOC: M LAB REF 08:02 | PROVIDERS: ATTEND Nurse Practitioner Family | DX: N39.0 Urinary tract infection, site not specified (principal) ==

== ENCOUNTER → 2020-06-04 | Outpatient (CLI) | payer MEDICARE, OTHER | LOC: M LABSMTC 10:28 | PROVIDERS: ATTEND Anesthesiology | DX: Z01.812 Encounter for preprocedural laboratory examination (principal); Z20.828 Contact with and (suspected) exposure to other viral communicable diseases | CPT/HCPCS: C9803; U0003 ==

== ENCOUNTER → 2020-06-09 | Day surgery (SDC) | payer MEDICARE, OTHER ==
[~2020-06-09] VITALS: Ht 180.3 cm; Wt 78.7 kg
[~2020-06-09] MED LIST changes: +LIDOCAINE 2% 100MG/5ML SDV (FOR ANES.) As Ordered ONE; +NS 1,000 ML IV ONE; +propofoL 200 MG/20 ML VIAL As Ordered ONE
--- NOTE | 2020-06-09 11:10 | ROOR ---
Patient Name: Reece Yarbrough Procedure Date: 06/09/2020 10:20 AM Date of : 1945 Age: 74 Room: [facility] Gender: Male Note Status: Finalized Procedure: Colonoscopy Indications: High risk colon cancer surveillance: Personal history of colonic polyps Providers: Mele Mccloud MD Referring MD: Jaqueline WINSTON Requesting Provider: Medicines: Monitored Anesthesia Care Complications: No immediate complications. Procedure: Pre-Anesthesia Assessment: - Prior to the procedure, a History and Physical was performed, and patient medications and allergies were reviewed. The patient is competent. The risks and benefits of the procedure and the sedation options and risks were discussed with the patient. All questions were answered and informed consent was obtained. Patient identification and proposed procedure were verified by the physician, the nurse and the anesthesiologist in the procedure room. Mental Status Examination: alert and oriented. Airway Examination: normal oropharyngeal airway and neck mobility. Respiratory Examination: clear to auscultation. CV Examination: normal. Prophylactic Antibiotics: The patient does not require prophylactic antibiotics. Prior Anticoagulants: The patient has taken no previous anticoagulant or antiplatelet agents. ASA Grade Assessment: II - A patient with mild systemic disease. After reviewing the risks and benefits, the patient was deemed in satisfactory condition to undergo the procedure. The anesthesia plan was to use monitored anesthesia care (MAC). Immediately prior to administration of medications, the patient was re-assessed for adequacy to receive sedatives. The heart rate, respiratory rate, oxygen saturations, blood pressure, adequacy of pulmonary ventilation, and response to care were monitored throughout the procedure. The physical status of the patient was re-assessed after the procedure. The Colonoscope was introduced through the anus and advanced to the terminal ileum, with identification of the appendiceal orifice and IC valve. The colonoscopy was performed without difficulty. The patient tolerated the procedure well. The quality of the bowel preparation was good. The ileocecal valve, appendiceal orifice, and rectum were photographed. Scope insertion time was 3 minutes. Scope withdrawal time was 9 minutes. The total duration of the procedure was 12 minutes. Findings: The perianal and digital rectal examinations were normal. The terminal ileum appeared normal. Six sessile polyps were found in the recto-sigmoid colon, transverse colon, ascending colon and cecum. The polyps were 5 to 12 mm in size. These polyps were removed with a cold snare. Resection and retrieval were complete. For hemostasis, one hemostatic clip was successfully placed. There was no bleeding at the end of the procedure. Verification of patient identification for the specimen was done by the physician and nurse using the patient's name, date and medical record number. Estimated blood loss was minimal. Multiple small and large-mouthed diverticula were found from sigmoid to descending colon. There was no evidence of diverticular bleeding. A tattoo was seen in the proximal rectum. A post-polypectomy scar was found at the tattoo site. Non-bleeding external and internal hemorrhoids were found during retroflexion. The hemorrhoids were medium-sized. Impression: - The examined portion of the ileum was normal. - Six 5 to 12 mm polyps at the recto-sigmoid colon, in the transverse colon, in the ascending colon and in the cecum, removed with a cold snare. Resected and retrieved. Clip was placed. - Moderate diverticulosis from sigmoid to descending colon. There was no evidence of diverticular bleeding. - A tattoo was seen in the proximal rectum. A post-polypectomy scar was found at the tattoo site. - Non-bleeding external and internal hemorrhoids. Recommendation: - Patient has a contact number available for emergencies. The signs and symptoms of potential delayed complications were discussed with the patient. Return to normal activities tomorrow. Written discharge instructions were provided to the patient. - High fiber diet. - Continue present medications. - Await pathology results. - Repeat colonoscopy in 3 - 5 years for surveillance based on pathology results. - Telephone GI clinic for pathology results in 2 weeks. - Return to primary care physician. Mele Mccloud MD Mele Mccloud MD 06/09/2020 11:10:20 AM Electronically signed by Mele Mccloud MD Number of Addenda: 0 Note Initiated On: 06/09/2020 10:20 AM Estimated Blood Loss: Estimated blood loss was minimal.
[2020-06-09 11:22] VITALS: BP 166/77
== END | disposition home or self-care (01) ==
LOC: M OPP 09:14
PROVIDERS: ATTEND Internal Medicine Gastroenterology
DX: Z12.11 Encounter for screening for malignant neoplasm of colon (principal); Z86.010 Personal history of colon polyps; K64.8 Other hemorrhoids; K63.5 Polyp of colon; K57.30 Diverticulosis of large intestine without perforation or abscess without bleeding; C61 Malignant neoplasm of prostate; C67.9 Malignant neoplasm of bladder, unspecified; Z79.82 Long term (current) use of aspirin; Z79.899 Other long term (current) drug therapy; Z92.21 Personal history of antineoplastic chemotherapy

== ENCOUNTER → 2020-08-08 | Outpatient (REF) | payer MEDICARE, OTHER ==
[~2020-08-08] MED LIST changes: -LIDOCAINE 2% 100MG/5ML SDV (FOR ANES.) As Ordered ONE; -NS 1,000 ML IV ONE; -propofoL 200 MG/20 ML VIAL As Ordered ONE
[2020-08-08 19:56] LABS: APPEARANCE, URINE CLEAR (CLEAR); BACTERIA, URINE AUTO NEGATIVE (NEGATIVE); BILIRUBIN, URINE AUTO NEGATIVE (NEGATIVE); BLOOD, URINE BLOOD NEGATIVE (NEGATIVE); COLOR, URINE YELLOW (YELLOW); GLUCOSE, URINE (UA) AUTO NEGATIVE (NEGATIVE); KETONE, URINE AUTO NEGATIVE (NEGATIVE); LEUKOCYTE ESTERASE, URINE AUTO NEGATIVE (NEGATIVE); MUCUS, URINE SMALL (NEGATIVE); NITRITE, URINE AUTO NEGATIVE (NEGATIVE); PROTEIN, URINE AUTO 2+ mg/dL (NEGATIVE); RBC, URINE AUTO 3 /HPF (0-3); SPECIFIC GRAVITY URINE AUTO 1.023 (1.002-1.035); SQUAMOUS EPITHELIAL CELL UR AU 0 /HPF (0-6); WBC, URINE AUTO 3 /HPF (0-3)
== END ==
LOC: M LAB REF 17:20
PROVIDERS: ATTEND Physician Assistant Medical
DX: R35.0 Frequency of micturition (principal); R41.82 Altered mental status, unspecified; F03.90 Unspecified dementia, unspecified severity, without behavioral disturbance, psychotic disturbance, mood disturbance, and anxiety

== ENCOUNTER → 2020-08-08 | Outpatient (CLI) | payer SELFPAY | LOC: M LABSMTC 13:05 | PROVIDERS: ATTEND Pediatrics | DX: Z20.822 Contact with and (suspected) exposure to COVID-19 (principal) ==

== ENCOUNTER → 2020-10-09 | Outpatient (REF) | payer MEDICARE, OTHER ==
[~2020-10-09] MED LIST changes: +ASPI-569 PO; -ASPI81TAEC PO; +HYDR-3490; +HYDR-3490 PO; -HYDR25TAB; -HYDR25TAB PO
== END ==
LOC: M SMT 14:15
PROVIDERS: ATTEND Urology
DX: C67.9 Malignant neoplasm of bladder, unspecified (principal)

== ENCOUNTER 2020-11-04 14:07 | Observation (INO) | payer MEDICARE, OTHER ==
[~2020-11-04] VITALS: Ht 177.8 cm; Wt 76.2 kg
--- NOTE | 2020-11-04 15:01 | REPVR ---
PROCEDURE INFORMATION: Exam: CT Cervical Spine Without Contrast Exam date and time: 11/04/2020 2:13 PM Age: 75 years old Clinical indication: Injury or trauma; Fall; Blunt trauma TECHNIQUE: Imaging protocol: Computed tomography images of the cervical spine without contrast. Radiation optimization: All CT scans at this facility use at least one of these dose optimization techniques: automated exposure control; mA and/or kV adjustment per patient size (includes targeted exams where dose is matched to clinical indication); or iterative reconstruction. COMPARISON: No relevant prior studies available. FINDINGS: Bones/joints: Multiple chronic appearing ossified fragment superior to the dens likely from old injury. No acute cervical spine fracture or traumatic malalignment. Discs/Spinal canal/Neural foramina: No severe osseous spinal canal stenosis. Multilevel overall moderate degenerative findings. Lungs: Extensive emphysema within the imaged upper lungs. Vasculature: Scattered atherosclerotic calcifications. Soft tissues: Unremarkable. IMPRESSION: No acute cervical spine fracture or traumatic malalignment. Electronically signed by: Dejuan Weaver On 11/04/2020 15:01:32 PM
--- NOTE | 2020-11-04 15:04 | REPVR ---
PROCEDURE INFORMATION: Exam: CT Head Without Contrast Exam date and time: 11/04/2020 2:13 PM Age: 75 years old Clinical indication: Injury or trauma; Fall; Blunt trauma (contusions or hematomas) TECHNIQUE: Imaging protocol: Computed tomography of the head without contrast. Radiation optimization: All CT scans at this facility use at least one of these dose optimization techniques: automated exposure control; mA and/or kV adjustment per patient size (includes targeted exams where dose is matched to clinical indication); or iterative reconstruction. COMPARISON: CT Head without contrast 04/20/2018 3:20 PM FINDINGS: Brain: Moderate generalized cerebral volume loss and moderate patchy white matter hypoattenuation, commonly secondary to chronic small vessel ischemic change. Moderate intracranial atherosclerosis. No acute ischemic infarction. No acute intracranial hemorrhage. 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 Cerebral ventricles: No obstructive ventriculomegaly. Bones/joints: No acute fracture. Paranasal sinuses: Visualized sinuses are unremarkable. No fluid levels. Mastoid air cells: Visualized mastoid air cells are well aerated. Soft tissues: Unremarkable. IMPRESSION: No acute intracranial abnormality. Electronically signed by: Dejuan Weaver On 11/04/2020 15:04:47 PM
--- NOTE | 2020-11-04 15:17 | REP ---
INDICATION: Altered Mental Status. COMPARISON: PA and lateral chest dated 12/07/2018. TECHNIQUE: Portable AP chest with the patient upright. FINDINGS: The lung wang are clear. Cardiac size is normal. The jacob, mediastinum and skeletal structures are unremarkable. IMPRESSION: Essentially negative PA and lateral chest There is no interval change. <Electronically signed by Shaji Gonzalez > 11/04/20 [id number]
[2020-11-04 15:27] LABS: VENOUS BASE EXCESS -7.3 (-2.0-2.0); VENOUS HCO3 17.6 MEQ/L (23.0-27.0); VENOUS O2 SATURATION 85.1 % (60.0-80.0); VENOUS PARTIAL PRESSURE CO2 33.9 mmHg (38.0-50.0); VENOUS PARTIAL PRESSURE O2 52.8 mmHg (30.0-50.0); VENOUS PH 7.333 UNITS (7.330-7.430); VENOUS STANDARD HCO3 18.3 MEQ/L; VENOUS TOTAL CO2 18.6 MEQ/L (24.0-28.0)
[2020-11-04 15:29] LABS: BASO % 0.4 % (0.0-1.0); EOS # 0.1 10^3/uL (0.0-0.5); HEMATOCRIT 40.1 % (42.0-52.0); HEMOGLOBIN 12.8 g/dl (13.5-17.5); LYMPH # 1.5 10^3/uL (1.5-5.0); MEAN CORPUSCULAR HEMOGLOBIN 30.8 pg (27.0-33.0); MEAN CORPUSCULAR HGB CONC 31.9 g/dl (32.0-36.5); MEAN CORPUSCULAR VOLUME 96.4 fl (80.0-96.0); MONO # 0.7 10^3/uL (0.0-0.8); MONO % 13.3 % (2.0-8.0); NEUTROPHILS # 2.6 10^3/uL (1.5-8.5); NEUTROPHILS % 53.7 % (36.0-66.0); PLATELET COUNT, AUTOMATED 148 10^3/uL (150-450); RED BLOOD COUNT 4.16 10^6/uL (4.30-6.10); WHITE BLOOD COUNT 4.9 10^3/uL (4.0-10.0)
[2020-11-04] MEDS ORDERED: LIDOCAINE 2% 5ML JELLY UROJET TOP ONE ×2 (15:30→16:30)
[2020-11-04 16:02] LABS: ACETAMINOPHEN LEVEL < 2.0 UG/ML (10.0-30.0); ALBUMIN 3.3 GM/DL (3.2-5.2); ALT/SGPT 26 U/L (12-78); BILIRUBIN,DIRECT 0.2 MG/DL (0.0-0.2); BILIRUBIN,TOTAL 0.6 MG/DL (0.2-1.0); BLOOD UREA NITROGEN 18 MG/DL (7-18); CALCIUM LEVEL 8.6 MG/DL (8.8-10.2); CARBON DIOXIDE LEVEL 23 MEQ/L (21-32); CHLORIDE LEVEL 108 MEQ/L (98-107); CK-MB VALUE MASS 1.6 NG/ML (<3.6); CPK CREATINE PHOSPHOKINASE 117 U/L (39-308); CREATININE FOR GFR 2.24 MG/DL (0.70-1.30); ETHYL ALCOHOL (ETHANOL) < 0.003 % (0.000-0.010); GLOMERULAR FILTRATION RATE 30.6 (>42); GLUCOSE, FASTING 129 MG/DL (70-100); LIPASE 181 U/L (73-393); MB/CK RELATIVE INDEX 1.37 (< OR =4); POTASSIUM SERUM 4.1 MEQ/L (3.5-5.1); SALICYLATE LEVEL 2.1 MG/DL (5.0-30.0); SODIUM LEVEL 139 MEQ/L (136-145); TOTAL PROTEIN 7.2 GM/DL (6.4-8.2); TROPONIN I < 0.02 NG/ML (< 0.10)
[2020-11-04 17:17] LABS: AMPHETAMINES LEVEL URINE NEGATIVE (NEGATIVE); BARBITURATES URINE NEGATIVE (NEGATIVE); BENZODIAZEPINES URINE NEGATIVE (NEGATIVE); CANNABINOIDS URINE NEGATIVE (NEGATIVE); COCAINE METABOLITE URINE NEGATIVE (NEGATIVE); METHADONE URINE NEGATIVE (NEGATIVE); OPIATES URINE NEGATIVE (NEGATIVE); PHENCYCLIDINE URINE NEGATIVE (NEGATIVE)
[2020-11-04] MEDS ORDERED: NS 1,000 ML IV ONE (18:15)
[2020-11-04] MEDS ORDERED: FOLI1TAB11 PO (19:05)
[2020-11-04] MEDS ORDERED: DONE5TAB82 PO (19:05)
[2020-11-04] MEDS ORDERED: PANT-23 PO (19:05)
[2020-11-04] MEDS ORDERED: MAALOX 30 ML SUSP *UDC PO PRN (19:05)
[2020-11-04] MEDS ORDERED: METO1TAB32 PO (19:05)
[2020-11-04] MEDS ORDERED: ATOR1TAB21 PO (19:05)
[2020-11-04] MEDS ORDERED: ASPI-255 PO (19:05)
[2020-11-04] MEDS ORDERED: FLUO20CA20 PO (19:05)
[2020-11-04] MEDS ORDERED: MOM 30ML SUSPENSION UDC PO PRN (19:05)
[2020-11-04] MEDS ORDERED: ACETAMINOPHEN TAB 650MG DOSE (2X325MG) PO PRN (19:05)
[2020-11-04] MEDS ORDERED: PROPRANOLOL 20 MG TAB PO PRN (19:20)
[2020-11-04 20:03] LABS: RSV AMPLIFICATION NEGATIVE (NEGATIVE)
--- NOTE | 2020-11-04 20:03 | HPEPDOC ---
[facility] Medical History & Physical Date of Admission Nov 04, 2020 Date of Service: Nov 04, 2020 Attending Physician: TERA ACUNA MD History and Physical CHIEF COMPLAINT: [75 year old male c/o AMS x1 week.] HISTORY OF PRESENT ILLNESS: [This is a 75 year old male with a pmh of CVA, vascular dementia, bladder ca s/p multiple tumor resections, prostate ca s/p prostatectomy, gastric ulcers, CKD and COPD who presents to the ED with his , Hayley, with a chief complaint of altered mental status. It is important to note that patient is a very poor historian and mimics questions that I ask him, so his provides history. Patient apparently received the second dose of his moderna COVID vaccination about a week ago and has been having decreasing mental status since. Patient has also developed weakness and a new b/l hand and mouth tremor. According to , patient's symptoms have been getting progressively worse, and she does not feel that they are related to his dementia. states that he has suffered two falls in the past 3 days, including one in a parking lot where she believes he struck his head on the cement. She blames this on his weakness and unsteadiness that has been evolving as stated. states that he has had episodes like this in the past, and every time this has happened, it has been because of a UTI. states that his oral intake has been good, he has regular bowel movements, and complains of no pain. Denies syncope, vomiting, diarrhea, chest pain, fevers. Patient had COVID infection in august and lost 20 pounds per . In ED, patient had negative UA, negative CT head, negative tox screen, negative covid screen] PAST MEDICAL HISTORY: 1. See HPI PAST SURGICAL HISTORY: 1. [See HPI SOCIAL HISTORY: Marital status: []. Resides in: [Home with ] Employment: [retired] Tobacco use:[2.5 ppd for "about 50 years" per ] ETOH: [Denies] Illicit drug use: [Denies] ALLERGIES: Please see below. REVIEW OF SYSTEMS: CONSTITUTIONAL: [Denies fever, chills]. HEENT: [Denies cough, congestion]. CARDIOVASCULAR: [See HPI]. RESPIRATORY: [See HPI]. GASTROINTESTINAL: [See HPI]. GENITOURINARY: [Denies hematuria]. SKIN: [Denies rash]. MUSCULOSKELETAL: [Denies acute joint pain]. NEUROLOGICAL: [See HPI]. PSYCHIATRIC: [See HPI]. ENDOCRINE: [Denies hx of DM]. HOME MEDICATIONS: Please see below. PHYSICAL EXAMINATION: VITAL SIGNS: Please see below. GENERAL APPEARANCE: [This is a 75 year old male who is laying comfortably in bed. He babbles sentences and echoes most questions asked of him. He appears in no distress]. HEENT: [No mass or lesion. EOMI. No scleral icterus, conjunctival erythema. Nares patent. Oral mucosa moist]. CARDIOVASCULAR: [Regular rate, rhythm. No murmurs, rubs or gallops]. LUNGS: [Diminished breath sounds b/l. No wheezing, rales]. ABDOMEN: [Soft, non-tender]. MUSCULOSKELETAL: [No joint deformity]. EXTREMITIES: [No peripheral edema, cyanosis, clubbing noted. Good pulses b/l]. NEUROLOGICAL: [Strength rated at 4/5 in RUE and 5/5 in all other extremities. Upon chart review, this appears to be baseline. Speech clear but jumbled. Oriented to person only.]. PSYCHIATRIC: [Mood and affect stable]. LABORATORY DATA: See below. IMAGING: [Head CT: FINDINGS: Brain: Moderate generalized cerebral volume loss and moderate patchy white matter hypoattenuation, commonly secondary to chronic small vessel ischemic change. Moderate intracranial atherosclerosis. No acute ischemic infarction. No acute intracranial hemorrhage. 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 Cerebral ventricles: No obstructive ventriculomegaly. Bones/joints: No acute fracture. Paranasal sinuses: Visualized sinuses are unremarkable. No fluid levels. Mastoid air cells: Visualized mastoid air cells are well aerated. Soft tissues: Unremarkable. IMPRESSION: No acute intracranial abnormality Cervical Neck CT: FINDINGS: Bones/joints: Multiple chronic appearing ossified fragment superior to the dens likely from old injury. No acute cervical spine fracture or traumatic malalignment. Discs/Spinal canal/Neural foramina: No severe osseous spinal canal stenosis. Multilevel overall moderate degenerative findings. Lungs: Extensive emphysema within the imaged upper lungs. Vasculature: Scattered atherosclerotic calcifications. Soft tissues: Unremarkable. IMPRESSION: No acute cervical spine fracture or traumatic malalignment. Chest X-ray: FINDINGS: The lung wang are clear. Cardiac size is normal. The jacob, mediastinum and skeletal structures are unremarkable. IMPRESSION: Essentially negative PA and lateral chest There is no interval change.] MICROBIOLOGY: Please see below. ASSESSMENT: [This is a 75 year old male with acute onset AMS for one week. Patient's has identified the only change in his regimen since the decline has been the administration of his second dose of moderna covid vaccine. Patient has had episodes of confusion in the past due to uti, however ua at this time is negative. Blood cultures have been drawn. CT head/neck have been negative for acute CVA. Patient paints delirium picture without clear source at this time.]. . PLAN: 1. [AMS - Delirium seems more likely than encephalopathy at this time. Possibly a result of a post viral or post vaccination syndrome - Blood cultures have been drawn - MRI/MRA brain have been ordered to rule out cva or rapid progression of vascular dementia - We will admit patient to med surg for observation - Will continue donepezil, memantine - continue at home propranolol for mild agitation 2. Hx of CVA - Acute infarct seems unlikely at this time, however must be ruled out. MRI has been ordered as previously stated - Continue ASA 3. HTN - Continue metoprolol 4. Dementia]. - As previously discussed, patients current status more likely delirium as vascular dementia does not often progress this quickly. - Will monitor behavior, need for medication 5. Hx of gastric ulcer - continue pantoprazole 6. CKD - patient's cr appears to be at baseline 7.COPD - patient uses no at-home inhalers. - patient has no symptoms at this time, will monitor need for inhalers 8. Depression - continue prozac 9. DVT prophylaxis - heparin ordered Vital Signs Vital Signs Date Time Temp Pulse Resp B/P (MAP) Pulse Ox O2 Delivery O2 Flow Rate FiO2 11/04/20 18:52 66 11/04/20 18:45 129/85 (100) 11/04/20 16:22 96 11/04/20 14:07 97.3 18 Room Air Laboratory Data Labs 24H Laboratory Tests 2 11/04/20 15:09: Immature Granulocyte % (Auto) 0.6, Neutrophils (%) (Auto) 53.7, Lymphocytes (%) (Auto) 30.0, Monocytes (%) (Auto) 13.3H, Eosinophils (%) (Auto) 2.0, Basophils (%) (Auto) 0.4, Neutrophils # (Auto) 2.6, Lymphocytes # (Auto) 1.5, Monocytes # (Auto) 0.7, Eosinophils # (Auto) 0.1, Basophils # (Auto) 0.0, Nucleated Red Blood Cells % (auto) 0.0, Blood Gas Bicarbonate Standard 18.3, Venous Blood pH 7.333, Venous Blood Partial Pressure CO2 33.9L, Venous Blood Partial Pressure O2 52.8H, Venous Blood Total Carbon Dioxide 18.6L, Venous Blood HCO3 17.6L, Venous Blood Oxygen Saturation 85.1H, Venous Blood Base Excess -7.3L, Anion Gap 8, Glomerular Filtration Rate 30.6L, Lactic Acid Level 1.8, Calcium Level 8.6L, Total Bilirubin 0.6, Direct Bilirubin 0.2, Aspartate Amino Transf (AST/SGOT) 16, Alanine Aminotransferase (ALT/SGPT) 26, Alkaline Phosphatase 87, Ammonia 26, Total Creatine Kinase 117, Creatine Kinase MB 1.6, Creatine Kinase MB Relative Index 1.37, Troponin I < 0.02, Total Protein 7.2, Albumin 3.3, Albumin/Globulin Ratio 0.8, Lipase 181, Thyroid Stimulating Hormone (TSH) 1.670, Salicylates Level 2.1L, Urine Opiates Screen NEGATIVE, Urine Methadone Screen NEGATIVE, [place] taminophen Level < 2.0L, Urine Barbiturates Screen NEGATIVE, Urine Phencyclidine Screen NEGATIVE, Urine Amphetamines Screen NEGATIVE, Urine Benzodiazepines Screen NEGATIVE, Urine Cocaine Metabolite Screen NEGATIVE, Urine Cannabinoids Screen NEGATIVE, Ethyl Alcohol Level < 0.003 11/04/20 16:45: Urine Color YELLOW, Urine Appearance CLEAR, Urine pH 6.0, Urine Specific [place] 1.016, Urine Protein 1+H, Urine Glucose (UA) NEGATIVE, Urine Ketones NEGATIVE, Urine Blood NEGATIVE, Urine Nitrite NEGATIVE, Urine Bilirubin NEGATIVE, Urine Urobilinogen 4.0H, Urine Leukocyte Esterase NEGATIVE, Urine WBC (Auto) 1, Urine RBC (Auto) 1, Urine Hyaline Casts (Auto) 6, Urine Bacteria (Auto) NEGATIVE, Urine Squamous Epithelial Cells 0, Urine Mucus (Auto) SMALL, Urine Sperm (Auto) 11/04/20 19:19: CBC/BMP Laboratory Tests 11/04/20 15:09 Microbiology Microbiology 11/04/20 Blood Culture, Received Pending 11/04/20 Blood Culture, Received Pending Home Medications Scheduled Aspirin (Aspirin EC) 325 Mg Tablet.dr, 325 MG PO DAILY Atorvastatin Calcium (Atorvastatin Calcium) 20 Mg Tablet, 40 MG PO QHS Calcitriol (Rocaltrol) 0.25 Mcg Capsule, 0.25 MCG PO 3XW MON, WED, FRI Donepezil HCl (Donepezil HCl) 5 Mg Tablet, 10 MG PO QHS Fluoxetine Hcl (Fluoxetine HCl) 20 Mg Capsule, 20 MG PO DAILY Folic Acid (Folic Acid) 1 Mg Tablet, 1 MG PO DAILY Memantine HCl (Memantine HCl) 10 Mg Tablet, 10 MG PO BID Metoprolol Succinate (Metoprolol Succinate) 25 Mg Tab.er.24h, 25 MG PO DAILY Pantoprazole Sodium (Pantoprazole Sodium) 40 Mg Tablet.dr, 40 MG PO DAILY Allergies Coded Allergies: propoxyphene (Verified Allergy, Severe, anaphylaxis, 12/18/18) A-FIB/CHADSVASC A-FIB History Current/History of A-Fib/PAF?: No CADE CIFUENTES Nov 04, 2020 20:03
--- NOTE | 2020-11-04 21:37 | REPVR ---
PROCEDURE INFORMATION: Exam: MR Head Without Contrast Exam date and time: 11/04/2020 9:18 PM Age: 75 years old Clinical indication: Altered mental status/memory loss; Confusion or disorientation; Patient HX: AMS; Additional info: R/O stroke TECHNIQUE: Imaging protocol: MR of the head without contrast. COMPARISON: MRI-Brain without Contrast 04/20/2018 6:18 PM FINDINGS: Limitations: Motion artifact significantly degrades anatomic detail on this study. Brain: There are global involutional changes of the brain which are in keeping with the patient's age. Signal changes in the periventricular white matter and imelda are nonspecific but statistically most likely reflect chronic microvascular ischemic disease. Encephalomalacia at the left parietooccipital junction which corresponds to an area of acute ischemia noted on 04/20/2018 MRI. There is no evidence of intracranial hemorrhage. There is no evidence of a focal mass. No abnormal extra-axial fluid collections are identified. Cerebral ventricles: Normal. No ventriculomegaly. Bones/joints: Unremarkable. Paranasal sinuses: The visualized sinuses are unremarkable. Mastoid air cells: There is no mastoid effusion detected. Orbital cavity: The orbits are normal. Soft tissues: Unremarkable. IMPRESSION: 1. No acute ischemia, mass, or hemorrhage identified. 2. Involutional changes of the brain in keeping with the patient's age, with findings of chronic microvascular ischemic disease. 3. Encephalomalacia at the left parietooccipital junction which corresponds to an area of acute ischemia noted on 04/20/2018 MRI. Electronically signed by: Betsey Loja On 11/04/2020 21:37:48 PM
--- NOTE | 2020-11-04 21:43 | REPVR ---
PROCEDURE INFORMATION: Exam: MRA Head Without Contrast; Arteriography Exam date and time: 11/04/2020 9:18 PM Age: 75 years old Clinical indication: Cognitive deficit; Altered mental status; Patient HX: AMS, ; additional info: R/O stroke TECHNIQUE: Imaging protocol: Magnetic resonance angiography head without contrast. Exam focused on the arteries. COMPARISON: MRA BRAIN W/O CONTRAST 04/20/2018 6:09 PM FINDINGS: ANTERIOR CIRCULATION: Right internal carotid artery: Intracranial segment is patent with no significant stenosis. No aneurysm. Right middle cerebral artery: No occlusion or significant stenosis. No aneurysm. Right anterior cerebral artery: No occlusion or significant stenosis. No aneurysm. Left internal carotid artery: Intracranial segment is patent with no significant stenosis. No aneurysm. Left middle cerebral artery: No occlusion or significant stenosis. No aneurysm. Left anterior cerebral artery: No occlusion or significant stenosis. No aneurysm. POSTERIOR CIRCULATION: Right vertebral artery: No occlusion or significant stenosis. No aneurysm. Left vertebral artery: No occlusion or significant stenosis. No aneurysm. Basilar artery: No occlusion or significant stenosis. No aneurysm. Right posterior cerebral artery: No occlusion or significant stenosis. No aneurysm. Left posterior cerebral artery: No occlusion or significant stenosis. No aneurysm. IMPRESSION: No acute intracranial vascular abnormality identified. Electronically signed by: Betsey Loja On 11/04/2020 21:43:09 PM
[2020-11-04 22:23] VITALS: BP 153/90
[2020-11-04] MEDS: MEMANTINE 5MG TABLET (NAMENDA) PO SCH (23:00)
[2020-11-04] MEDS: ATORVASTATIN 20 MG TAB PO SCH (23:00)
[2020-11-04] MEDS: DONEPEZIL 5 MG TAB PO SCH (23:00)
[2020-11-04] MEDS: DOCUSATE SODIUM 100MG CAPSULE PO SCH (23:01)
[2020-11-04] MEDS: HEPARIN SOD (PORCINE) 5000UNITS/ML 1ML VIAL/SYRINGE SC SCH (23:01)
[2020-11-05 01:48] VITALS: O2SAT 95
[2020-11-05 06:00] VITALS: BP 142/89
[2020-11-05 06:25] LABS: HEMATOCRIT 37.7 % (42.0-52.0); MEAN CORPUSCULAR HEMOGLOBIN 30.8 pg (27.0-33.0); MEAN CORPUSCULAR HGB CONC 31.8 g/dl (32.0-36.5); MEAN CORPUSCULAR VOLUME 96.7 fl (80.0-96.0); PLATELET COUNT, AUTOMATED 151 10^3/uL (150-450); WHITE BLOOD COUNT 4.3 10^3/uL (4.0-10.0)
[2020-11-05 06:46] LABS: BLOOD UREA NITROGEN 16 MG/DL (7-18); CALCIUM LEVEL 8.1 MG/DL (8.8-10.2); CARBON DIOXIDE LEVEL 23 MEQ/L (21-32); CHLORIDE LEVEL 110 MEQ/L (98-107); CREATININE FOR GFR 1.87 MG/DL (0.70-1.30); GLOMERULAR FILTRATION RATE 37.7 (>42); GLUCOSE, FASTING 74 MG/DL (70-100); MAGNESIUM LEVEL 1.9 MG/DL (1.8-2.4); POTASSIUM SERUM 4.1 MEQ/L (3.5-5.1); SODIUM LEVEL 140 MEQ/L (136-145)
[2020-11-05] MEDS: ASPIRIN ENTERIC 325 MG TAB PO SCH (08:20)
[2020-11-05] MEDS: PANTOPRAZOLE 40MG TAB (PROTONIX) PO SCH (08:20)
[2020-11-05] MEDS: MEMANTINE 5MG TABLET (NAMENDA) PO SCH ×2 (08:20→20:41)
[2020-11-05] MEDS: DOCUSATE SODIUM 100MG CAPSULE PO SCH ×2 (08:20→20:41)
[2020-11-05] MEDS: FOLIC ACID 1 MG TAB PO SCH (08:20)
[2020-11-05] MEDS: METOPROLOL SUCC *XL* 25MG TAB (TopROL *XL*) PO SCH (08:21)
[2020-11-05] MEDS: FLUoxetine 20 MG CAP PO SCH (08:21)
[2020-11-05] MEDS: HEPARIN SOD (PORCINE) 5000UNITS/ML 1ML VIAL/SYRINGE SC SCH ×2 (08:21→20:40)
--- NOTE | 2020-11-05 10:37 | IPNPDOC ---
Text Note Date of Service The patient was seen on 11/05/20. NOTE Subjective: Patient seen and examined at bedside. No acute overnight events reported. Patient has no new complaints this morning. He is a poor historian. Objective: General: NAD, lying comfortably in bed, elderly, confused HEENT: NC/AT, edentulous Lungs: CTA B/L Heart: +S1S2, RRR Abd: soft, NT, +BS Ext: no edema Psych: confused, oriented to person only A/P: 75 year old male with acute onset AMS for one week. Patient's has identified the only change in his regimen since the decline has been the administration of his second dose of moderna covid vaccine. Patient has had episodes of confusion in the past due to uti, however ua at this time is negative. Further workup unrevealing. #AMS - likely metabolic encephalopathy - workup thus far unrevealing - Blood cultures have been drawn - Will continue donepezil, memantine - continue at home propranolol for mild agitation #Hx of CVA - Continue ASA #HTN - Continue metoprolol #Dementia - Will monitor behavior, need for medication #Hx of gastric ulcer - continue pantoprazole # CKD - patient's cr appears to be at baseline #COPD - stable #Depression - continue prozac #DVT prophylaxis - heparin ordered Disposition: pending PT, OT, PFS VS,Rudibone, I+O VS, Karene, I+O Laboratory Tests 11/04/20 15:09 11/05/20 06:01 Vital Signs Date Time Temp Pulse Resp B/P (MAP) Pulse Ox O2 Delivery O2 Flow Rate FiO2 11/05/20 08:21 77 142/89 11/05/20 06:00 97.0 20 96 Nasal Cannula 2.0 I&O- Last 24 Hours up to 6 AM 11/05/20 06:00 Intake Total 1410 ml Output Total 100 ml Balance 1310 ml YASHIRA JOINER MD Nov 05, 2020 10:37
[2020-11-05 14:00] VITALS: BP 147/86
--- NOTE | 2020-11-05 19:17 | ECGEPIP ---
[facility] - ED Test Date: 2020-11-04 Pat Name: LIZET BATEMAN Department: Room: [place] [address] Gender: Male Display Department Manager: NAYELI : 1945 Requested By: Rachelle Hicks Order Number: [id number] Reading MD: Rachelle Hicks Measurements Intervals [place] Rate: 79 P: 51 GA: 142 QRS: 53 QRSD: 82 T: 55 QT: 390 QTc: 447 Interpretive Statements Normal sinus rhythm low qrs voltage limb leads Nonspecific ST T wave changes cw rate increased Nonspecific ST T wave changes Electronically Signed on 11-05-2020 19:17:19 EDT by Rachelle Hicks
[2020-11-05] MEDS: DONEPEZIL 5 MG TAB PO SCH (20:41)
[2020-11-05] MEDS: ATORVASTATIN 20 MG TAB PO SCH (20:41)
[2020-11-05 22:00] VITALS: BP 146/88
[2020-11-06 06:00] VITALS: BP 143/88
[2020-11-06 06:36] LABS: HEMOGLOBIN 12.3 g/dl (13.5-17.5); MEAN CORPUSCULAR HEMOGLOBIN 31.6 pg (27.0-33.0); MEAN CORPUSCULAR HGB CONC 32.4 g/dl (32.0-36.5); MEAN CORPUSCULAR VOLUME 97.7 fl (80.0-96.0); PLATELET COUNT, AUTOMATED 182 10^3/uL (150-450); RED BLOOD COUNT 3.89 10^6/uL (4.30-6.10); WHITE BLOOD COUNT 5.1 10^3/uL (4.0-10.0)
[2020-11-06 07:03] LABS: CALCIUM LEVEL 8.6 MG/DL (8.8-10.2); CREATININE FOR GFR 1.91 MG/DL (0.70-1.30); GLOMERULAR FILTRATION RATE 36.8 (>42); MAGNESIUM LEVEL 2.2 MG/DL (1.8-2.4)
[2020-11-06 07:44] VITALS: BP 143/88
[2020-11-06] MEDS: HEPARIN SOD (PORCINE) 5000UNITS/ML 1ML VIAL/SYRINGE SC SCH (07:44)
[2020-11-06] MEDS: FLUoxetine 20 MG CAP PO SCH (07:44)
[2020-11-06] MEDS: METOPROLOL SUCC *XL* 25MG TAB (TopROL *XL*) PO SCH (07:44)
[2020-11-06] MEDS: FOLIC ACID 1 MG TAB PO SCH (07:45)
[2020-11-06] MEDS: PANTOPRAZOLE 40MG TAB (PROTONIX) PO SCH (07:45)
[2020-11-06] MEDS: DOCUSATE SODIUM 100MG CAPSULE PO SCH (07:45)
[2020-11-06] MEDS: ASPIRIN ENTERIC 325 MG TAB PO SCH (07:45)
[2020-11-06] MEDS: MEMANTINE 5MG TABLET (NAMENDA) PO SCH (07:45)
[2020-11-06] MEDS ORDERED: CALCITRIOL 0.25 MCG CAP (S0169) PO SCH (09:00)
--- NOTE | 2020-11-06 11:39 | IPNPDOC ---
Text Note Date of Service The patient was seen on 11/06/20. NOTE Subjective: Patient seen and examined at bedside. No acute overnight events reported. Patient has no new complaints this morning. He is a poor historian. Objective: General: NAD, lying comfortably in bed, elderly, pleasantly confused HEENT: NC/AT, edentulous Lungs: CTA B/L Heart: +S1S2, RRR Abd: soft, NT, +BS Ext: no edema Psych: confused, oriented to person only A/P: 75 year old male with acute onset AMS for one week. Patient's has identified the only change in his regimen since the decline has been the administration of his second dose of Moderna covid vaccine. Patient has had episodes of confusion in the past due to uti, however ua at this time is negative. Further workup unrevealing. #AMS - workup thus far unrevealing - Will continue donepezil, memantine - continue at home propranolol for mild agitation #Hx of CVA - Continue ASA #HTN - Continue metoprolol #Dementia - Will monitor behavior, need for medication #Hx of gastric ulcer - continue pantoprazole # CKD - patient's cr appears to be at baseline #COPD - stable #Depression - continue prozac #DVT prophylaxis - heparin ordered Disposition: pending PT, OT, PFS; home care vs placement VS,[place]ividad, I+O VS, Natividad, I+O Laboratory Tests 11/06/20 06:11 Vital Signs Date Time Temp Pulse Resp B/P (MAP) Pulse Ox O2 Delivery O2 Flow Rate FiO2 11/06/20 07:44 76 143/88 11/06/20 06:00 97.4 18 93 Nasal Cannula 2.0 I&O- Last 24 Hours up to 6 AM 11/06/20 06:00 Intake Total 1460 ml Output Total 450 ml Balance 1010 ml YASHIRA JOINER MD Nov 06, 2020 11:39
[2020-11-06 11:41] LABS: FOLATE > 24.0 NG/ML (>5.4)
[2020-11-06 12:55] LABS: VITAMIN B12 LEVEL 361 PG/ML (247-911)
[2020-11-06 14:00] VITALS: BP 165/86
--- NOTE | 2020-11-06 16:06 | DS.PDOC ---
Discharge Summary General Date of Admission Nov 04, 2020 at 19:03 Date of Discharge 11/06/20 Discharge Summary PROCEDURES PERFORMED DURING STAY: [None]. DISCHARGE DIAGNOSES: #AMS - baseline dementia #Hx of CVA #HTN #Dementia #Hx of gastric ulcer # CKD #COPD #Depression COMPLICATIONS/CHIEF COMPLAINT: AMS. HOSPITAL COURSE: 75 year old male with acute onset AMS for one week. Patient's has identified the only change in his regimen since the decline has been the administration of his second dose of Moderna covid vaccine. Patient has had episodes of confusion in the past due to uti, however ua at this time is negative. Further workup unrevealing. Patient cleared by PT, requesting to return patient home. Further workup as outpatient. #AMS - workup thus far unrevealing - Will continue donepezil, memantine - continue at home propranolol for mild agitation #Hx of CVA - Continue ASA #HTN - Continue metoprolol #Dementia - Will monitor behavior, need for medication #Hx of gastric ulcer - continue pantoprazole # CKD - patient's cr appears to be at baseline #COPD - stable #Depression - continue prozac #DVT prophylaxis - heparin ordered DISCHARGE MEDICATIONS: Please see below. ALLERGIES: Please see below. PHYSICAL EXAMINATION ON DISCHARGE: VITAL SIGNS: Please see below. General: NAD, lying comfortably in bed, elderly, pleasantly confused HEENT: NC/AT, edentulous Lungs: CTA B/L Heart: +S1S2, RRR Abd: soft, NT, +BS Ext: no edema Psych: confused, oriented to person only LABORATORY DATA: Please see below. ACTIVITY: [As tolerated]. DISPOSITION: Discharge home. DISCHARGE INSTRUCTIONS: 1. Follow up PCP in 3-5 days. DISCHARGE CONDITION: [Stable]. TIME SPENT ON DISCHARGE: 35 minutes. Vital Signs/I&Os Vital Signs Date Time Temp Pulse Resp B/P (MAP) Pulse Ox O2 Delivery O2 Flow Rate FiO2 11/06/20 14:00 97.8 67 18 165/86 (112) 98 Room Air 11/06/20 06:00 2.0 I&O- Last 24 Hours up to 6 AM 11/06/20 06:00 Intake Total 1460 ml Output Total 450 ml Balance 1010 ml Laboratory Data Labs 24H Laboratory Tests 2 11/06/20 06:11: Nucleated Red Blood Cells % (auto) 0.0, Anion Gap 5L, Glomerular Filtration Rate 36.8L, Calcium Level 8.6L, Magnesium Level 2.2 CBC/BMP Laboratory Tests 11/06/20 06:11 Microbiology Microbiology 11/04/20 Blood Culture - Preliminary, Resulted No Growth after 48 hours. All Specime... 11/04/20 Blood Culture - Preliminary, Resulted No Growth after 48 hours. All Specime... Discharge Medications Scheduled Aspirin (Aspirin EC) 325 Mg Tablet.dr, 325 MG PO DAILY, (Reported) Atorvastatin Calcium (Atorvastatin Calcium) 20 Mg Tablet, 40 MG PO QHS, (Re ported) Calcitriol (Rocaltrol) 0.25 Mcg Capsule, 0.25 MCG PO 3XW, (Reported) FRI, FRI, FRI Donepezil HCl (Donepezil HCl) 5 Mg Tablet, 10 MG PO QHS, (Reported) Fluoxetine Hcl (Fluoxetine HCl) 20 Mg Capsule, 20 MG PO DAILY, (Reported) Folic Acid (Folic Acid) 1 Mg Tablet, 1 MG PO DAILY, (Reported) Memantine HCl (Memantine HCl) 10 Mg Tablet, 10 MG PO BID, (Reported) Metoprolol Succinate (Metoprolol Succinate) 25 Mg Tab.er.24h, 25 MG PO DAILY, (Reported) Pantoprazole Sodium (Pantoprazole Sodium) 40 Mg Tablet.dr, 40 MG PO DAILY, (Reported) Allergies Coded Allergies: propoxyphene (Verified Allergy, Severe, anaphylaxis, 12/18/18) YASHIRA JOINER MD Nov 06, 2020 16:06
== END 2020-11-06 16:13 | disposition home or self-care (01) ==
LOC: M ED 14:07 → M ED INP 19:03 → ENRESERV 21:05 → M MSPAV 22:22
PROVIDERS: ADMIT Family Medicine; ATTEND Internal Medicine
DX: R41.82 Altered mental status, unspecified (principal); Z86.73 Personal history of transient ischemic attack (TIA), and cerebral infarction without residual deficits; I12.9 Hypertensive chronic kidney disease with stage 1 through stage 4 chronic kidney disease, or unspecified chronic kidney disease; F01.50 Vascular dementia, unspecified severity, without behavioral disturbance, psychotic disturbance, mood disturbance, and anxiety; N18.9 Chronic kidney disease, unspecified; K44.9 Diaphragmatic hernia without obstruction or gangrene; F32.9 Major depressive disorder, single episode, unspecified; Z87.11 Personal history of peptic ulcer disease; Z79.82 Long term (current) use of aspirin; Z79.899 Other long term (current) drug therapy; Z88.8 Allergy status to other drugs, medicaments and biological substances; Z85.47 Personal history of malignant neoplasm of testis; Z85.51 Personal history of malignant neoplasm of bladder; F17.218 Nicotine dependence, cigarettes, with other nicotine-induced disorders
CPT/HCPCS: 36415; 70450; 70544; 70551; 71045; 72125; 80048; 80076; 80143; 80307; 81001; 82077; 82140; 82550; 82553; 82607; 82746; 82803; 83605; 83690; 83735; 84443; 84484; 85025; 85027; 86780; 87040; 87631; 93005; 93041; 96360; 96361; 96372; 97161; 97165; 97530; 99285; G0378; J1644

== ENCOUNTER → 2020-11-29 | Outpatient (CLI) | payer MEDICARE, OTHER ==
[~2020-11-29] MED LIST changes: +ASPI-255 PO; +DONE5TAB82 PO; +FLUO20CA20 PO; +PANT-23 PO
--- NOTE | 2020-11-29 09:16 | REP ---
INDICATION: AAA WITHOUT RUPTURE. COMPARISON: 04/24/2015. TECHNIQUE: Real-time sonographic evaluation of the abdominal aorta performed. FINDINGS: There is a fusiform aneurysm of the mid to distal abdominal aorta. Maximum AP diameter is 4.9 cm. This extends for a length of approximately 8 cm. There is mild noncalcified thrombus/plaque posteriorly. The residual patent lumen has an AP diameter of approximately 3.0 cm. Maximum AP diameter of abdominal aorta: Proximal (at diaphragm):1.9 cm. At renal artery level: Obscured by bowel gas Mid abdominal aorta:3.2 cm. Distal abdominal aorta (prebifurcation): 4.9 cm. Maximum AP diameter common iliac arteries: Right: 1.4 mm. Left: 1.7mm. IMPRESSION: Fusiform aneurysm of mid to distal abdominal aorta with maximum AP diameter 4.9 cm. <Electronically signed by Shaji Garcia > 11/29/20 0912
== END ==
LOC: M RAD 07:07
PROVIDERS: ATTEND Nurse Practitioner Family
DX: I71.4 Abdominal aortic aneurysm, without rupture (principal)

== ENCOUNTER → 2021-03-22 | Outpatient (REF) | payer MEDICARE, OTHER | LOC: M LAB REF 17:17 | PROVIDERS: ATTEND Nurse Practitioner Family | DX: E83.42 Hypomagnesemia (principal) ==

== ENCOUNTER → 2021-10-02 | Outpatient (REF) | payer MEDICARE, OTHER ==
[~2021-10-02] MED LIST changes: +FLUO-96 PO; -FLUO20CA20 PO
== END ==
LOC: M LAB REF 12:47
PROVIDERS: ATTEND Nurse Practitioner Family
DX: N39.0 Urinary tract infection, site not specified (principal)